=== PATIENT | female | born 1965 ===

== ENCOUNTER 2017-12-22 14:17 | Inpatient (IN) | payer BC ==
--- NOTE | 2017-12-22 15:14 | C.PDOC ---
History Of Present Illness 52yo female, with history of hypertension, diabetes, and severe disc disease, comes to ER reporting intractable back pain, ongoing x 1 month. Patient reports she now has increased right buttock and right leg numbness and has had frequent falls due to the weakness. She states the pain localizes in the lumbar area and radiates to bilateral legs, right > left. Patient has been following with Dr. Lake, neurosurgeon, and was instructed to come to ER for evaluation of worsening pain. She reports stress urine incontinence, but denies any retention or bowel incontinence. She also denies any abdominal pain or dizziness. PMD: In the [place] Time Seen by Provider: 12/22/17 14:28 Chief Complaint (Nursing): Back Pain History Per: Patient History/Exam Limitations: no limitations Onset/Duration Of Symptoms: Persistent Current Symptoms Are (Timing): Still Present Associated Symptoms: Incontinence (stress), New Weakness (right leg). denies: New Numbness Additional History Per: Patient Past Medical History Reviewed: Historical Data, Nursing Documentation, Vital Signs Vital Signs: Last Vital Signs Temp 98.2 F 12/22/17 14:20 Pulse 83 12/22/17 14:20 Resp 18 12/22/17 14:20 BP 145/89 12/22/17 14:20 Pulse Ox 99 12/22/17 14:20 - Medical History PMH: Back Problems, Hypercholesterolemia Surgical History: Appendectomy, Tonsillectomy Family History: States: Diabetes, Hypertension - Social History Hx Tobacco Use: No Hx Alcohol Use: Yes Hx Substance Use: No - Immunization History Hx Tetanus Toxoid Vaccination: No Hx Influenza Vaccination: No Hx Pneumococcal Vaccination: No Review Of Systems Except As Marked, All Systems Reviewed And Found Negative. (as per HPI) Constitutional: Negative for: Fever, Chills Gastrointestinal: Negative for: Abdominal Pain, Other (bowel incontinence) Genitourinary: Positive for: Incontinence (stress urine incontinence) Musculoskeletal: Positive for: Back Pain Neurological: Positive for: Weakness (right leg), Numbness (right buttock and right leg). Negative for: Dizziness Physical Exam - Physical Exam Appears: Non-toxic, In Acute Distress (moderate painful distress), Other (tired appearing) Skin: Normal Color Head: Atraumatic, Normacephalic Eye(s): bilateral: Normal Inspection Neck: Normal ROM, Supple Chest: Symmetrical Cardiovascular: Rhythm Regular Respiratory: Normal Breath Sounds Gastrointestinal/Abdominal: Normal Exam, Soft Back: Vertebral Tenderness (lumbar tenderness; no stepoff; no creptius), Paraspinal Tenderness (lumbar), Straight Leg Raising (+ bilaterally) Extremity: Other (bilateral knee DTR reflex test inconclusive) Neurological/Psych: Oriented x3, Normal Motor (5/5 motor strength ankle flexion, dorsiflexion and EHL), No Normal Sensation (light touch decreased on right lateral buttock), Other (no saddle anesthesia) ED Course And Treatment - Laboratory Results Result Diagrams: 12/28/17 12:57 12/28/17 12:57 O2 Sat by Pulse Oximetry: 99 (RA) Pulse Ox Interpretation: Normal Medical Decision Making Medical Decision Making: Impression: Intractable back pain Plan: -- Labs -- Urinalysis -- CXR -- EKG [address] Lake, who recommends admission. [address] Yuri Brice, hospitalist electronics teacher, who accepts patient for admission. Disposition Counseled Patient/Family Regarding: Diagnosis - Disposition Disposition: HOSPITALIZED Disposition Time: 15:00 Condition: FAIR - Clinical Impression Clinical Impression: Low back pain - Scribe Statement The provider has reviewed the documentation as recorded by the Kranthi Bermeo Provider Attestation: All medical record entries made by the Kranthi were at my direction and personally dictated by me. I have reviewed the chart and agree that the record accurately reflects my personal performance of the history, physical exam, medical decision making, and the department course for this patient. I have also personally directed, reviewed, and agree with the discharge instructions and disposition.
[2017-12-22 15:33] LABS: BASO # 0.2 K/uL (0.0-0.2); BASO % 1.2 % (0.0-2.0); EOS # 0.3 K/uL (0.0-0.7); EOS % 2.6 % (0.0-4.0); HEMOGLOBIN 13.8 g/dL (11.0-16.0); LYMPH # 3.6 K/uL (1.0-4.3); LYMPH % 27.5 % (20.0-40.0); MEAN CELL VOLUME 87.8 fL (81.0-99.0); MEAN CORPUSCULAR HEMOGLOBIN 30.6 pg (27.0-31.0); MEAN CORPUSCULAR HGB CONC 34.8 g/dL (33.0-37.0); MEAN PLATELET VOLUME 9.3 fL (7.2-11.7); MONO # 0.6 K/uL (0.0-0.8); MONO % 4.7 % (0.0-10.0); NEUT # 8.3 K/uL (1.8-7.0); RBC 4.51 Mil/uL (3.80-5.20); RED CELL DISTRIBUTION WIDTH 13.5 % (11.5-14.5)
[2017-12-22 15:42] LABS: PROTHROMBIN TIME 10.7 SECONDS (9.7-12.2)
[2017-12-22 15:57] LABS: ALB/GLOB RATIO 1.2 (1.0-2.1); ALBUMIN 4.3 g/dL (3.5-5.0); ALT/SGPT 20 U/L (9-52); AST/SGOT 19 U/L (14-36); BLOOD UREA NITROGEN 16 mg/dL (7-17); CALCIUM 10.1 mg/dl (8.6-10.4); GFR NON-AFRICAN AMERICAN > 60
[2017-12-22] MEDS ORDERED: Sodium Chloride 0.9% 1,000 ML IV SCH (16:45)
--- NOTE | 2017-12-22 16:48 | RAD ---
Date of service: 12/22/2017 PROCEDURE: CHEST RADIOGRAPH, 1 VIEW HISTORY: preop COMPARISON: None available. FINDINGS: LUNGS: Clear. Shallow lung volumes PLEURA: No pneumothorax or pleural fluid seen. CARDIOVASCULAR: Cardiomegaly. There is absence of aortic atherosclerotic calcification on x-ray. No pulmonary venous congestion OSSEOUS STRUCTURES: No significant abnormalities. VISUALIZED UPPER ABDOMEN: Normal. OTHER FINDINGS: None. IMPRESSION: Cardiomegaly. No acute pulmonary pathology noted
--- NOTE | 2017-12-22 16:53 | CP.PCM.HP ---
<ClementcurtMargairtocandido - Last Filed: 12/22/17 16:44> History of Present Illness - History of Present Illness History of Present Illness: Ms. Yeung is a 52 year old female with a PMHx of Diabetes Type II, severe lumbar disk disease, constipation, hyperlipidemia, Asthma, and obstructive sleep apnea who presents with complaints of lower back pain with radiation. Patient was told by her Neurosurgeon (Dr. Lake) to go to the E.R if her back pain ever worsened. Patient walked into the E.R with her assistance of her son. Patient admits to saddle anaesthesia and some urinary incontinence. She denies any bowel incontinence. She also admits to motor loss of the lower extremity and distal lower extremity numbness and tingling. ROS POSITIVES: Back pain (Lumbar), Saddle Anaesthesia, Lower Ext. motor loss, Low Ext. sensory loss, urinary incontinence NEGATIVES: Fever, chills, chest pain, SOB, abdominal pain, n/v/d, constipation, bowel incontinence, dizziness, dysuria, urinary frequency PMHx: Diabetes Type II, Severe disk disease, Constipation, HLD, Asthma, JZAZY, Seasonal Allergies PSHx: Lumbar Disk removal, B/L 1st Toe surgery, tonsillectomy, sinus surgery Allergies: NKDA, SocialHx: Denies tobacco use, social EtoH use, Denies illicit drug use Hos: For surgeries FamHx: Mother - Insulin dependent diabetes Meds: Per APR. PMD: Dr. Robbie Sánchez Present on Admission - Present on Admission Any Indicators Present on Admission: No Review of Systems - Review of Systems Review of Systems: As per HPI Past Patient History - Past Social History Smoking Status: Never Smoked - CARDIAC Hx Hypercholesterolemia: Yes - ENDOCRINE/METABOLIC Hx Endocrine Disorders: Yes Hx Diabetes Mellitus Type 2: Yes - MUSCULOSKELETAL/RHEUMATOLOGICAL Hx Musculoskeletal Disorders: Yes - PSYCHIATRIC Hx Substance Use: No - SURGICAL HISTORY Hx Appendectomy: Yes Hx Tonsillectomy: Yes Meds Allergies/Adverse Reactions: Allergies Allergy/AdvReac Type Severity Reaction Status Date / Time No Known Allergies Allergy Verified 12/22/17 14:24 Physical Exam - Constitutional Appears: Well, Non-toxic, No Acute Distress - Head Exam Head Exam: ATRAUMATIC, NORMAL INSPECTION - Eye Exam Eye Exam: EOMI, Normal appearance. absent: Scleral icterus - ENT Exam ENT Exam: Mucous Membranes Moist - Neck Exam Neck exam: Positive for: Normal Inspection - Respiratory Exam Respiratory Exam: Clear to Auscultation Bilateral. absent: Accessory Muscle Use - Cardiovascular Exam Cardiovascular Exam: RRR, +S1, +S2 - GI/Abdominal Exam GI & Abdominal Exam: Normal Bowel Sounds, Soft. absent: Tenderness - Extremities Exam Extremities exam: Positive for: normal capillary refill. Negative for: pedal edema - Back Exam Additional comments: Lumbar paraspinal tenderness - Neurological Exam Neurological exam: Abnormal Gait, Alert, Motor Sensory Deficit (Anterior left foot.), Oriented x3 Additional comments: 3/5 Muscle Strength in hip flexion 5/5 Muscle Strength in Right Dorsi/Plantar flexion 4/5 Muscle Strength in Left Dorsi/Plantar flexion Positive Straight leg Test B/L. - Psychiatric Exam Psychiatric exam: Normal Affect, Normal Mood - Skin Skin Exam: Dry, Intact, Normal Color, Warm Results - Vital Signs Recent Vital Signs: Last Vital Signs Temp 98.5 F 12/22/17 16:37 Pulse 73 12/22/17 16:37 Resp 16 12/22/17 16:37 BP 145/76 12/22/17 16:37 Pulse Ox 99 12/22/17 16:37 - Labs Result Diagrams: 12/22/17 15:28 12/22/17 15:28 Labs: Laboratory Results - last 24 hr 12/22/17 12/22/17 12/22/17 15:28 15:28 15:28 WBC 13.0 H RBC 4.51 Hgb 13.8 Hct 39.6 MCV 87.8 MCH 30.6 MCHC 34.8 RDW 13.5 Plt Count 268 MPV 9.3 Neut % (Auto) 64.0 Lymph % (Auto) 27.5 Alfalfa % (Auto) 4.7 Eos % (Auto) 2.6 Baso % (Auto) 1.2 Neut # (Auto) 8.3 H Lymph # (Auto) 3.6 Alfalfa # (Auto) 0.6 Eos # (Auto) 0.3 Baso # (Auto) 0.2 PT 10.7 INR 1.0 APTT 33 Sodium 139 Potassium 4.2 Chloride 100 Carbon Dioxide 27 Anion Gap 16 BUN 16 Creatinine 0.6 L Est GFR ( Amer) > 60 Est GFR (Non-Af Amer) > 60 Random Glucose 225 H Calcium 10.1 Phosphorus Magnesium Total Bilirubin 0.6 AST 19 ALT 20 Alkaline Phosphatase 119 Total Protein 7.9 Albumin 4.3 Globulin 3.6 Albumin/Globulin Ratio 1.2 12/22/17 16:02 WBC RBC Hgb Hct MCV MCH MCHC RDW Plt Count MPV Neut % (Auto) Lymph % (Auto) Alfalfa % (Auto) Eos % (Auto) Baso % (Auto) Neut # (Auto) Lymph # (Auto) Alfalfa # (Auto) Eos # (Auto) Baso # (Auto) PT INR APTT Sodium Potassium Chloride Carbon Dioxide Anion Gap BUN Creatinine Est GFR ( Amer) Est GFR (Non-Af Amer) Random Glucose Calcium Phosphorus 4.3 Magnesium 1.7 Total Bilirubin AST ALT Alkaline Phosphatase Total Protein Albumin Globulin Albumin/Globulin Ratio Assessment & Plan - Assessment and Plan (Free Text) Assessment: 52 year old female with a PMHx of Diabetes Type II, severe lumbar disk disease, constipation, hyperlipidemia, Asthma, and obstructive sleep apnea admitted for evaluation and treatment lumbar disk disease. Plan: Severe B/L Lumbar Disk Disease with radiculopathy Neurosurgery Consulted (Dr. Lake) EKG (Admission) NSR @ 75 BPM CXR (Admission): No Acute pulmonary disease (Prelim) PT/PTT - Within Normal Limits NPO After MIDNIGHT, NS @ 75 mls/hr Meds: Morphine 1 Q6H PRN for Severe Pain Toradol 15 Q4H PRN for Moderate Pain Diabetes II Meds: Glyburide 2.5 BID (Reduced from Home 5mg BID) Regular Insulin Sliding Scale Metformin 500 BID (HELD) Hyperlipidemia Meds: Crestor 5 HS (changed from home Simvastatin 20mg HS) Ezetimibe 10 PO HS Asthma Meds: Singulair 10 PO HS Proph NPO After Midnight Lovenox - Not started due to possible surgery in AM SCD's NO indication for GI prophylaxis at this time. Patient seen and discussed with Dr. Babs Colon, PGY-2 <Yuri Brice H - Last Filed: 12/23/17 07:30> Results - Vital Signs Recent Vital Signs: Last Vital Signs Temp 98 F 12/23/17 00:00 Pulse 74 12/23/17 00:00 Resp 20 12/23/17 00:00 BP 160/76 H 12/23/17 00:00 Pulse Ox 97 12/23/17 00:00 - Labs Result Diagrams: 12/23/17 06:47 12/23/17 06:47 Labs: Laboratory Results - last 24 hr 12/22/17 12/22/17 12/22/17 15:28 15:28 15:28 WBC 13.0 H RBC 4.51 Hgb 13.8 Hct 39.6 MCV 87.8 MCH 30.6 MCHC 34.8 RDW 13.5 Plt Count 268 MPV 9.3 Neut % (Auto) 64.0 Lymph % (Auto) 27.5 Alfalfa % (Auto) 4.7 Eos % (Auto) 2.6 Baso % (Auto) 1.2 Neut # (Auto) 8.3 H Lymph # (Auto) 3.6 Alfalfa # (Auto) 0.6 Eos # (Auto) 0.3 Baso # (Auto) 0.2 PT 10.7 INR 1.0 APTT 33 Sodium 139 Potassium 4.2 Chloride 100 Carbon Dioxide 27 Anion Gap 16 BUN 16 Creatinine 0.6 L Est GFR ( Amer) > 60 Est GFR (Non-Af Amer) > 60 POC Glucose (mg/dL) Random Glucose 225 H Calcium 10.1 Phosphorus Magnesium Total Bilirubin 0.6 AST 19 ALT 20 Alkaline Phosphatase 119 Total Protein 7.9 Albumin 4.3 Globulin 3.6 Albumin/Globulin Ratio 1.2 Urine Color Urine Clarity Urine pH Ur Specific [place] Urine Protein Urine Glucose (UA) Urine Ketones Urine Blood Urine Nitrate Urine Bilirubin Urine Urobilinogen Ur Leukocyte Esterase Urine WBC (Auto) Ur Squamous Epith Cells Urine Bacteria Urine HCG, Qual Blood Type Antibody Screen 12/22/17 12/22/17 12/22/17 15:55 16:02 21:03 WBC RBC Hgb Hct MCV MCH MCHC RDW Plt Count MPV Neut % (Auto) Lymph % (Auto) Alfalfa % (Auto) Eos % (Auto) Baso % (Auto) Neut # (Auto) Lymph # (Auto) Alfalfa # (Auto) Eos # (Auto) Baso # (Auto) PT INR APTT Sodium Potassium Chloride Carbon Dioxide Anion Gap BUN Creatinine Est GFR ( Amer) Est GFR (Non-Af Amer) POC Glucose (mg/dL) 342 H Random Glucose Calcium Phosphorus 4.3 Magnesium 1.7 Total Bilirubin AST ALT Alkaline Phosphatase Total Protein Albumin Globulin Albumin/Globulin Ratio Urine Color Urine Clarity Urine pH Ur Specific [place] Urine Protein Urine Glucose (UA) Urine Ketones Urine Blood Urine Nitrate Urine Bilirubin Urine Urobilinogen Ur Leukocyte Esterase Urine WBC (Auto) Ur Squamous Epith Cells Urine Bacteria Urine HCG, Qual Blood Type B POSITIVE Antibody Screen Negative 12/23/17 12/23/17 12/23/17 05:42 06:47 06:47 WBC 11.2 H RBC 4.13 Hgb 12.7 Hct 36.7 MCV 88.9 MCH 30.7 MCHC 34.5 RDW 13.2 Plt Count 237 MPV 9.2 Neut % (Auto) 60.0 Lymph % (Auto) 30.5 Alfalfa % (Auto) 5.2 Eos % (Auto) 3.4 Baso % (Auto) 0.9 Neut # (Auto) 6.7 Lymph # (Auto) 3.4 Alfalfa # (Auto) 0.6 Eos # (Auto) 0.4 Baso # (Auto) 0.1 PT 10.9 INR 1.0 APTT 29 Sodium Potassium Chloride Carbon Dioxide Anion Gap BUN Creatinine Est GFR ( Amer) Est GFR (Non-Af Amer) POC Glucose (mg/dL) 237 H Random Glucose Calcium Phosphorus Magnesium Total Bilirubin AST ALT Alkaline Phosphatase Total Protein Albumin Globulin Albumin/Globulin Ratio Urine Color Urine Clarity Urine pH Ur Specific [place] Urine Protein Urine Glucose (UA) Urine Ketones Urine Blood Urine Nitrate Urine Bilirubin Urine Urobilinogen Ur Leukocyte Esterase Urine WBC (Auto) Ur Squamous Epith Cells Urine Bacteria Urine HCG, Qual Blood Type Antibody Screen 12/23/17 12/23/17 12/23/17 06:47 06:50 06:50 WBC RBC Hgb Hct MCV MCH MCHC RDW Plt Count MPV Neut % (Auto) Lymph % (Auto) Alfalfa % (Auto) Eos % (Auto) Baso % (Auto) Neut # (Auto) Lymph # (Auto) Alfalfa # (Auto) Eos # (Auto) Baso # (Auto) PT INR APTT Sodium 137 Potassium 4.0 Chloride 104 Carbon Dioxide 23 Anion Gap 14 BUN 12 Creatinine 0.5 L Est GFR ( Amer) > 60 Est GFR (Non-Af Amer) > 60 POC Glucose (mg/dL) Random Glucose 241 H Calcium 8.9 Phosphorus Magnesium Total Bilirubin 0.5 AST 14 D ALT 23 Alkaline Phosphatase 138 H Total Protein 6.7 Albumin 3.8 Globulin 2.9 Albumin/Globulin Ratio 1.3 Urine Color Yellow Urine Clarity Clear Urine pH 5.0 Ur Specific [place] 1.012 Urine Protein Negative Urine Glucose (UA) 3+ H Urine Ketones Negative Urine Blood Negative Urine Nitrate Negative Urine Bilirubin Negative Urine Urobilinogen Normal Ur Leukocyte Esterase Neg Urine WBC (Auto) < 1 Ur Squamous Epith Cells 2 Urine Bacteria Rare Urine HCG, Qual Negative Blood Type Antibody Screen Attending/Attestation - Attestation I have personally seen and examined this patient.: Yes I have fully participated in the care of the patient.: Yes I have reviewed all pertinent clinical information: Yes Notes (Text): 12/23/17 07:25 Medical attending: Patient was seen and examined by me. Agree with the above note by the resident The patient was not in any acute distress when we saw her however she explained to us that she has been having ongoing severe low back pain for some time now and has failed conservative outpatient measures. The patient previously had seen neurosurgery and per my discussion with patient and family at bedside there had been past discussion about surgery already. Reguardless if the patient does have surgical intervention or not, we explained to the patient and family that she may benefit from going to rehab following this. Yuri Brice
[2017-12-22] MEDS: Sodium Chloride 0.9% 1,000 ML IV SCH (18:00)
[2017-12-22] MEDS: Bacitracin Ointment 30 GM TUBE TOP SCH (18:00)
[2017-12-22] MEDS: (Novolin R) Insulin Human Regular 100 units/ml vial SC SCH (22:08)
[2017-12-23 06:52] LABS: BASO # 0.1 K/uL (0.0-0.2); BASO % 0.9 % (0.0-2.0); EOS # 0.4 K/uL (0.0-0.7); EOS % 3.4 % (0.0-4.0); HEMOGLOBIN 12.7 g/dL (11.0-16.0); LYMPH # 3.4 K/uL (1.0-4.3); LYMPH % 30.5 % (20.0-40.0); MEAN CELL VOLUME 88.9 fL (81.0-99.0); MEAN CORPUSCULAR HEMOGLOBIN 30.7 pg (27.0-31.0); MEAN CORPUSCULAR HGB CONC 34.5 g/dL (33.0-37.0); MEAN PLATELET VOLUME 9.2 fL (7.2-11.7); MONO # 0.6 K/uL (0.0-0.8); MONO % 5.2 % (0.0-10.0); NEUT # 6.7 K/uL (1.8-7.0); RBC 4.13 Mil/uL (3.80-5.20); RED CELL DISTRIBUTION WIDTH 13.2 % (11.5-14.5); WHITE BLOOD COUNT 11.2 K/uL (4.8-10.8)
[2017-12-23 06:59] LABS: SQUAMOUS EPITHIAL 2 /hpf (0-5); URINE BACTERIA RARE (<OCC); URINE BILIRUBIN NEGATIVE (NEGATIVE); URINE BLOOD NEGATIVE (NEGATIVE); URINE CLARITY Clear (Clear); URINE COLOR Yellow (YELLOW); URINE GLUCOSE (UA) 3+ mg/dL (Normal); URINE LEUKOCYTE ESTERASE NEG Leu/uL (Negative); URINE PROTEIN NEGATIVE (NEGATIVE); URINE UROBILINOGEN NORMAL mg/dL (0.2-1.0)
[2017-12-23 07:05] LABS: PROTHROMBIN TIME 10.9 SECONDS (9.7-12.2)
[2017-12-23 07:22] LABS: ALB/GLOB RATIO 1.3 (1.0-2.1); ALBUMIN 3.8 g/dL (3.5-5.0); ALT/SGPT 23 U/L (9-52); AST/SGOT 14 U/L (14-36); BLOOD UREA NITROGEN 12 mg/dL (7-17); CALCIUM 8.9 mg/dl (8.6-10.4); GFR NON-AFRICAN AMERICAN > 60
[2017-12-23] MEDS ORDERED: Bupivacaine Liposomal Inj 20 ml INFIL ONE (07:24)
[2017-12-23] MEDS ORDERED: Bacitracin 50,000 UNIT in Sodium Chloride 0.9% Irrig 1,000 ML IR SCH (07:25)
[2017-12-23] MEDS ORDERED: Sodium Chloride 0.9% 20 ML IV ONE ×2 (07:33→09:28)
[2017-12-23] MEDS ORDERED: Absorbable Gelatin Sponge Size 100 ONE (07:33)
[2017-12-23] MEDS ORDERED: Bacitracin Ointment 30 GM TUBE ONE (07:34)
[2017-12-23] MEDS ORDERED: Lidocaine/Epinephrine 1% 1:100000 10 ML IJ ONE (07:34)
[2017-12-23] MEDS: (Novolin R) Insulin Human Regular 100 units/ml vial SC SCH ×4 (07:35→22:17)
[2017-12-23] MEDS ORDERED: Propofol 10 mg/ml Inj (20 ML) ONE (08:05)
[2017-12-23] MEDS ORDERED: Midazolam 2 MG/2 ML VIAL ONE (08:05)
[2017-12-23] MEDS ORDERED: Propofol 10 mg/ml 1,000 MG/100 ML VIAL ONE ×3 (08:07→11:23)
[2017-12-23] MEDS ORDERED: ceFAZolin IV 1 gm in Dextrose 2 GM/100 ML BAG IVPB ONE (08:11)
[2017-12-23] MEDS ORDERED: Thrombin Topical 20,000 Intl Units Spray Kit TOP ONE (08:11)
[2017-12-23] MEDS: Bacitracin Ointment 30 GM TUBE TOP SCH ×2 (08:59→18:15)
--- NOTE | 2017-12-23 09:09 | CP.PCM.PN ---
<Yuri Melchor - Last Filed: 12/23/17 17:38> Subjective - Date & Time of Evaluation Date of Evaluation: 12/23/17 Time of Evaluation: 09:08 - Subjective Subjective: Progress note for Hospitalist service Patient seen and examined at bedside post-operatively. She is comfortable, complains of minimal back pain. Family at bedside requests that patient be fed soon and has medications on for pain control. Patient is awake but slightly somnolent. She denies abdominal pain, chest pain, headache, dizziness, urinary problems, leg pain. She has not had a bowel movement since her surgery today. Objective - Vital Signs/Intake and Output Vital Signs (last 24 hours): Temp Pulse Resp BP Pulse Ox 98.1 F 66 20 128/62 97 12/23/17 07:51 12/23/17 07:51 12/23/17 07:51 12/23/17 07:51 12/23/17 07:51 Intake and Output: 12/23/17 12/23/17 06:59 18:59 Intake Total 375 600 Output Total 0 Balance 375 600 - Medications Medications: Current Medications Bacitracin (Bacitracin) 0 gm TOP BID [facility] Last Admin: 12/23/17 08:59 Dose: Not Given Ezetimibe (Zetia) 10 mg PO HS [facility] Last Admin: 12/22/17 22:15 Dose: Not Given Glyburide (Micronase) 2.5 mg PO BID [facility] Last Admin: 12/23/17 09:00 Dose: Not Given Sodium Chloride (Sodium Chloride 0.9%) 1,000 mls @ 75 mls/hr IV .[id number] [facility] Last Admin: 12/22/17 18:00 Dose: 75 mls/hr Insulin Human Regular (Novolin R) 0 unit SC ACHS [facility]; Protocol Last Admin: 12/23/17 07:35 Dose: Not Given Ketorolac Tromethamine (Toradol) 15 mg IVP Q6 PRN PRN Reason: Pain, moderate (4-7) Loratadine (Claritin) 10 mg PO DAILY [facility] Last Admin: 12/23/17 08:59 Dose: Not Given Montelukast Sodium (Singulair) 10 mg PO HS [facility] Last Admin: 12/22/17 22:08 Dose: 10 mg Morphine Sulfate (Morphine) 1 mg IVP Q4 PRN PRN Reason: Pain, severe (8-10) Last Admin: 12/22/17 23:58 Dose: 1 mg Rosuvastatin Calcium (Crestor) 5 mg PO HS [facility] Last Admin: 12/22/17 22:07 Dose: 5 mg - Labs Labs: 12/23/17 06:47 12/23/17 06:47 PT 10.9 SECONDS (9.7-12.2) 12/23/17 06:47 INR 1.0 12/23/17 06:47 APTT 29 SECONDS (21-34) 12/23/17 06:47 - Constitutional Appears: Well, No Acute Distress - Head Exam Head Exam: ATRAUMATIC, NORMOCEPHALIC - Eye Exam Eye Exam: EOMI, PERRL - ENT Exam ENT Exam: Mucous Membranes Moist - Neck Exam Neck Exam: Full ROM. absent: Tenderness - Respiratory Exam Respiratory Exam: Clear to Ausculation Bilateral. absent: Rales, Rhonchi, Wheez es, Stridor - Cardiovascular Exam Cardiovascular Exam: REGULAR RHYTHM, +S1, +S2. absent: Gallop, Rubs, Murmur - GI/Abdominal Exam GI & Abdominal Exam: Soft, Normal Bowel Sounds. absent: Distended, Firm, Guarding, Rigid, Tenderness, Diminished Bowel Sounds - Extremities Exam Extremities Exam: Normal Capillary Refill. absent: Calf Tenderness, Pedal Edema, Tenderness Additional comments: SCDs in place Left big toe: ingrown nail, no evidence of erythema, discharge, lymphangitis. Scar noted at the 1st metatarsal joint Right big toe: scar noted at 1st metatarsal joint - Neurological Exam Neurological Exam: Alert, Awake (slightly somnolent) - Skin Skin Exam: Dry, Intact, Warm Assessment and Plan - Assessment and Plan (Free Text) Plan: Assessment/plan Assessment 52 year old female with history of Type 2 DM, severe lumbar disk disease, hyperlipidemia, asthma, obstructive sleep apnea, constipated who was admitted for lumbar disk disease and status post posterior lumbar fusion, decompression and fixation of L4-5, L5, S1 with Dr. Lake. Plan Severe Bilateral Lumbar disk disease Status post posterior lumbar fusion, decompression and fixation of L4-5, L5, S1 Post op day [address] Lake consulted, help appreciated EKG NSR at 75 CXR: negative Tylenol 650mg PRN On Dilaudid [employer] pump Toradol 15mg Q6 PRN Morphine 1mg Q4 PRN LR @ 100cc/hr IV Type 2 Diabetes Insulin sliding scale Home Metformin held during hospitalization Glyburide 2.5mg BID Hypoglycemic protocol Hyperlipidemia Crestor 5mg HS Zetia 10mg PO HS History of Asthma Albuterol Q4 PRN Singulair 10mg PO HS Claritin 10mg PO Daily Left big toe ingrown tail Apply bacitracin to area Prophylaxis DVT: SCDs, no anticoagulation for today, may start Heparin 12/24/17. GI: not indicated at this time. On consistent carb diet PT/OT Incentive spirometer Case management consulted for discharge planning Case discussed with Dr. Yuri Melchor, PGY1 <Yuri Brice H - Last Filed: 12/23/17 18:14> Objective - Vital Signs/Intake and Output Vital Signs (last 24 hours): Temp Pulse Resp BP Pulse Ox 98.1 F 88 20 115/73 98 12/23/17 15:00 12/23/17 15:00 12/23/17 15:00 12/23/17 15:00 12/23/17 15:00 Intake and Output: 12/23/17 12/23/17 06:59 18:59 Intake Total 375 2825 Output Total 750 Balance 375 2075 - Medications Medications: Current Medications Acetaminophen (Tylenol 325mg Tab) 650 mg PO Q6 PRN PRN Reason: Fever >100.4 F Albuterol/Ipratropium (Duoneb 3 Mg/0.5 Mg (3 Ml) Ud) 3 ml INH RQ4 PRN PRN Reason: Wheezing Bacitracin (Bacitracin) 0 gm TOP BID [facility] Last Admin: 12/23/17 08:59 Dose: Not Given Dextrose (Dextrose 50% Inj) 0 ml IV STAT PRN; Protocol PRN Reason: Hypoglycemia Protocol Dextrose (Glutose 15) 0 gm PO ONCE PRN; Protocol PRN Reason: Hypoglycemia Protocol Ezetimibe (Zetia) 10 mg PO HS [facility] Last Admin: 12/22/17 22:15 Dose: Not Given Glucagon (Glucagen Diagnostic Kit) 0 mg IM STAT PRN; Protocol PRN Reason: Hypoglycemia Protocol Glyburide (Micronase) 2.5 mg PO BID [facility] Last Admin: 12/23/17 17:52 Dose: 2.5 mg Hydromorphone/Sodium Chloride (Dilaudid [employer]) 4 mg IV Q4H PRN; Protocol PRN Reason: Pain, moderate (4-7) Last Admin: 12/23/17 15:40 Dose: 4 mg Sodium Chloride (Sodium Chloride 0.9%) 1,000 mls @ 75 mls/hr IV .[id number] [facility] Last Admin: 12/22/17 18:00 Dose: 75 mls/hr Lactated Ringer's (Lactated Ringer's) 1,000 mls @ 100 mls/hr IV .Q10H [facility] Dextrose (Dextrose 5% In Water 1000 Ml) 1,000 mls @ 0 mls/hr IV .Q0M PRN; Protocol PRN Reason: Hypoglycemia Protocol Influenza Virus Vaccine (Fluzone Quad 2403-0369) 60 mcg IM .ONCE ONE Stop: 12/25/17 10:01 Insulin Human Regular (Novolin R) 0 unit SC ACHS [facility]; Protocol Last Admin: 12/23/17 17:52 Dose: 4 units Ketorolac Tromethamine (Toradol) 15 mg IVP Q6 PRN PRN Reason: Pain, moderate (4-7) Loratadine (Claritin) 10 mg PO DAILY [facility] Last Admin: 12/23/17 08:59 Dose: Not Given Montelukast Sodium (Singulair) 10 mg PO [facility] Last Admin: 12/22/17 22:08 Dose: 10 mg Morphine Sulfate (Morphine) 1 mg IVP Q4 PRN PRN Reason: Pain, severe (8-10) Last Admin: 12/22/17 23:58 Dose: 1 mg Rosuvastatin Calcium (Crestor) 5 mg PO [facility] Last Admin: 12/22/17 22:07 Dose: 5 mg - Labs Labs: 12/23/17 06:47 12/23/17 06:47 PT 10.9 SECONDS (9.7-12.2) 12/23/17 06:47 INR 1.0 12/23/17 06:47 APTT 29 SECONDS (21-34) 12/23/17 06:47 Attending/Attestation - Attestation I have personally seen and examined this patient.: Yes I have fully participated in the care of the patient.: Yes I have reviewed all pertinent clinical information, including history, physical exam and plan: Yes Notes (Text): 12/23/17 18:12 Medical attending: Patient was seen and examined by me with the medical residents this afternoon. I did not see her before the surgery but afterwards. She was not in any acute distress, family members present. Patient looked very cheerful when I saw her. Explained to the patient as well as patient's family that at some point will need to have further physical therapy and rehab. Today patient was more understand with the need for rehab after procedure Yuri Brice
[2017-12-23] MEDS ORDERED: Bupivacaine HCl 0.5% PF (30 ml) Inj ONE (09:28)
[2017-12-23] MEDS ORDERED: Bupivacaine HCl 0.5% PF (30 ml) Inj IJ ONE (10:51)
[2017-12-23] MEDS: Vancomycin 1 g Inj ONE ×2 (12:04→12:10)
--- NOTE | 2017-12-23 12:34 | RAD ---
Date of service: 12/23/2017 PROCEDURE: Intraoperative Fluoroscopy. HISTORY: LUMBAR DISC DERANGEMENT FINDINGS: Fluoroscopic assistance was provided. Fluoroscopy time = 64.7 sec. Radiation dose = 1.22 mGy-cm Please refer to the operative report from [facility] Mendiola.
[2017-12-23] MEDS ORDERED: HYDROmorphone 0.5 mg/0.5 ml ISec IVP PRN (12:38)
[2017-12-23] MEDS ORDERED: Lactated Ringer's 1,000 ML IV SCH (12:45)
[2017-12-23] MEDS ORDERED: (Novolin R) Insulin Human Regular 100 units/ml vial IVP ONE (13:07)
[2017-12-23] MEDS ORDERED: Sodium Chloride 0.9% 1,000 ML IV ONE (14:30)
[2017-12-23] MEDS ORDERED: Albuterol-Ipratrop 3 mg / 0.5 (3 ml) UD INH PRN (16:57)
[2017-12-23] MEDS ORDERED: Dextrose 50% SYRINGE Inj (50 ml) IV PRN (17:34)
[2017-12-23] MEDS ORDERED: Glucagon Recombinant 1 mg Inj IM PRN (17:34)
[2017-12-23] MEDS: Sodium Chloride 0.9% 1,000 ML IV SCH (19:41)
--- NOTE | 2017-12-24 06:24 | OP ---
PROCEDURE DATE: 12/23/2017 PREOPERATIVE DIAGNOSES: Lumbar disc derangement with severe low back pain and bilateral radiculopathy L4-5, L5-S1. POSTOPERATIVE DIAGNOSES: Lumbar disc derangement with severe low back pain and bilateral radiculopathy, L4-5, L5-S1. PROCEDURE: Reexploration, decompression, diskectomy L4-S1; interbody fusion L4-5; segmental pedicle screw fixation of posterolateral fusion with iliac autograft L4-S1. SURGEON: Pradeep Lake MD NON DESTRUCTIVE EVALUATION TECHNICIAN: Luis Mitchell MD ANESTHESIA: General endotracheal. ESTIMATED BLOOD LOSS: 300 mL, 125 mL returned via Cell [employer]. COMPLICATIONS: None. JUSTIFICATION: The patient has had many years of severe low back pain as well as bilateral lumbar radiculopathy. She is status post a left L5-S1 microdiskectomy. She failed conservative treatment with MRI documented herniated disc and foraminal stenosis at L4-5 with a severe disc space collapse and bilateral foraminal stenosis at L5-S1. The patient was offered operative intervention by decompression, diskectomy, and fusion, the nature of the procedure, rationale behind it, potential risks, complications, alternatives, realistic chance of success, mcfp outlook were discussed with her at length. All questions were answered. She fully understood all the above and elected to proceed as offered. DESCRIPTION OF PROCEDURE: The patient was taken to the operating room. She was hooked up to neurophysiological monitoring. She was intubated, anesthetized, and carefully placed on prone position on a Cong frame. Care was taken to protect her face, eyes, endotracheal tube, and all bony prominences. The entire low back region was then scrubbed with acetone, and scrubbed, painted, and draped in usual sterile manner. Incision was localized with lateral fluoroscopy, essentially traced including old incision and extended approximately 3 cm cephalad, this was infiltrated with 1% lidocaine with epinephrine. After prepping and draping, the incision was made with a temporary knife carried down to the level of fascia. The Bovie cautery was used to incise through the fascia, strip the paraspinal muscles off the spinous processes, and lamina of L4-S1, particular care was taken at the left L5-S1 level because of the previous laminotomy. Deep self-retaining retractors were placed. Bleeding controlled throughout with cautery. The exposure was then widened out laterally bilaterally to expose the entire sacral ala. The transverse processes of L5 and L4 exposed the pars and the entire facets including the previously operated area. After the exposure was complete, we then performed bone harvestation. A 5-gauge trocar was inserted directly into the left superior posterior iliac crest. Approximately, 120 mL of bone marrow was aspirated. This was then spun down to obtain bone marrow mesenchymal cells, later used in the fusion. The decompression was begun with a Leksell rongeur, removing the spinous processes of S1, L5, and the inferior L4. The L4 and L5 lamina were thinned down, this bone was later used in the fusion. We then began the laminectomy at the right L5-S1 level. We aborted the previous scar on the left side, and we removed the entire L5 lamina and the inferior two thirds of L4 lamina. We then exposed widely at the L4-5 level performing generous medial facetectomies internally identifying the medial L4 and L5 pedicular wall. We performed generous foraminotomy of the exiting L4 nerve roots bilaterally. We then unroofed the L5 nerve roots and traced them out their foramen. At the 4-5 disc space level, we widened out laterally enough to be able to insert the appropriate fusion cage, some of the epidural veins were coagulated. We began then heading down towards the L5-S1, first on the divergent right side. 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 There was a low takeoff of L5 with a high take off S1, they seemed to conjoined, this was exacerbated by disc space collapse at this level. We felt that there was really not anywhere near enough room to safely perform an interbody fusion on this side because of these factors. We thus ensured that these two nerve roots, i.e., right thigh and right arm were completely decompressed heading out their foramina. We then came across to the previously scarred area with some careful microdissection, removed some of the scar on the left sided thecal sac. We identified both the left L5 and S1 nerve roots and completely unroofed and decompressed then, heading out the foramen. There was a fair amount of scar in this area as well. At this point, we made an incision. Because of the scar on the left, the conjoined picture on the right as well as the severe collapse of the disc space that we would not attempt an interbody fusion at this level. We felt the L4 nerve roots as documented above were completely decompressed. There did not seem on the MRI to be any EMG compression of the S1 nerve roots, and we felt that the risk outweigh the reward, and we would just go ahead with the fibular fixation, posterolateral fusion at this level. We then began the diskectomy at the L4-5 level. The left L5 nerve root was gently retracted medially. The disc was then incised and grossly emptied the disc material that was used to carry Rongeurs. We used 8 through 11 mm skylar to further remove any soft tissue disc material annulus and begin the decortication. We tested a 12 mm shaver but clearly it is part of the decided to proceed with a 11 x 9 mm fusion cage. Large curettes were used to complete the decortication at this level. The identical procedure was then performed on the right side. Again, after the decortication, we packed the disc space with bone grafting material which included chopped up products of decompression and additional marrow impregnated allograft as well as some demineralized bone matrix fusion cages impregnated with bone marrow mesenchymal cells and final AP tap construct that was a 9 x 11 mm carbon-fiber fusion cage, filled with the above reference products and was tapped into the interspace until it was well seated. Back on the original left side, we again packed the disc space with bone graft material and tapped the identical graft. Visual inspection and lateral fluoroscopy confirmed excellent position of both these implants. At this point, I used a high-speed drill to decorticate the lateral gutters which included the transverse processes, sacral ala, lateral pars, and the entire facet. We turned our attention to placing the pedicular screws. The technique was used to visually and fluoroscopically identifying the pedicular entrance, drilling the cortical bone, passing a gearshift down the barrel of the pedicle into the vertebral body and then placing the appropriate-sized screw. Additionally, electrical current was used to stimulate the gearshift and screws while monitoring EMG activity. Additionally, a ball-tip probe was used to sound each passage which documented bone all around. Using this technique, we placed 6 diameter screws, 40 to 45 mm length bilaterally at L4 and L5; and 7 diameter screws of 35 mm length at S1. The final placement of every screw did not elicit any EMG activity below the level of 20 milliamps as well as final lateral and AP fluoroscopy confirmed excellent position of all six of these screws. At this point, we placed the appropriate-sized titanium locking jarocho into the three screw head receptacles on each side. The rods were bent to conform with the lordosis. Locking nuts were then placed and torque-wrenched tight. At this point, we placed all remaining bone graft material into the lateral gutters, lateral to the jarocho to achieve the posterolateral fusion of all bone graft material, liberally packed into the fusion bed. We then ensured that there was no remaining foreign matter, bone graft, etc, in and around thecal sac. This was gently irrigated with antibiotic solution. A layer of powdered Gelfoam followed by a layer of solid Gelfoam was placed in the epidural space, and lastly, we placed the appropriate-sized cross connector form one jarocho to the other, and torque-wrenched block in three set points tight as well. Final AP and lateral fluoroscopy confirmed proper position of the entire construct. The retractors were withdrawn. The muscle reapproximated using interrupted 0 Vicryl. The fascia closed using a tight interrupted 0 Vicryl stitch. The wound was copiously irrigated with antibiotic solution, and a layer of vancomycin powder placed at the fascial plane. The subcu was closed in two separate layers of 2-0 Vicryl. The skin was closed with running 3-0 Monocryl stitch, benzoin, and Steri-Strips. Dressing was applied. The patient was turned back onto a supine position on a stretcher. She was easily extubated; noted to be moving all groups with good strength on her way to the recovery room. All counts were correct. There were no complications. Pradeep Lake MD
--- NOTE | 2017-12-24 06:25 | CON ---
DATE: 12/22/2017 HISTORY OF PRESENT ILLNESS: Ms. Yeung is a 52-year-old lady, well known to me, who has been having low back pain with radicular pain for many years. History dates back actually to 1998 when she underwent a left S1 microdiskectomy procedure. For the past five years, she has been having increasing severe pain across the low lumbar area. The pain radiates in both lower extremities. She has tingling and numbness in the same distribution. She does have a left foot injury which complicates the situation. 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 She has difficulty with prolonged driving, sitting and standing. Her back pain is essentially at a level of 9 on a 0 to 10 scale. She has had a fair amount of on-and-off physiotherapy and multiple medications. PAST MEDICAL HISTORY: Significant for diabetes and hypertension. She also has asthma. SOCIAL HISTORY: She does not smoke. PHYSICAL EXAMINATION: NEUROLOGIC: She does have good strength throughout. Sensory exam is normal with some diminution predominantly in the left posterolateral thigh and calf. Reflexes are 1+ in the knees, absent in the ankles. Straight leg raising is quite positive on the left, plus/minus on the right. She has a well-healed microdiskectomy incision. Range of motion is still restricted. LABORATORY DATA: MRI shows a herniated disk at L4-L5. There is foraminal stenosis at L5-S1. There is severe disk space collapse. There is some scar tissue involving the left S1 nerve root, not much in the way of generalized displacement there. IMPRESSION AND PLAN: The patient has suffered from many, many years with this pain syndrome. She seems like she is certainly at the end of her rope being unable to tolerate the pain any longer, presents herself to the ER. My recommendation would be re-exploration, decompression of L4 through S1 with stabilization and fusion. I went over this suggestion with the patient. She is in full agreement with the plan. She understands the potential risks and complications, realistic chance of success and recovery time. All her questions were answered. She is agreeable. We will proceed accordingly. Pradeep Lake MD [facility] # [id number]
--- NOTE | 2017-12-24 06:51 | CP.PCM.PN ---
<Yuri Melchor - Last Filed: 12/24/17 13:28> Subjective - Date & Time of Evaluation Date of Evaluation: 12/24/17 Time of Evaluation: 06:50 - Subjective Subjective: Progress note for Hospitalist service (Dr. Brice) Patient seen and examined at bedside. She states she was able to sleep on and off. Complains of pain in her back after her surgery, POD1. She states she is eating small amounts since she experienced a little bit of nausea. She denies fevers, chills, headaches, dizziness, chest pain, shortness of breath, palpitations, abdominal pain, vomiting, diarrhea, leg pain. She states she has not had a bowel movement since her surgery yesterday. She states she has mild tingling in the back of her legs, however states her sensation intact. Objective - Vital Signs/Intake and Output Vital Signs (last 24 hours): Temp Pulse Resp BP Pulse Ox 98.9 F 98 H 20 135/77 95 12/24/17 04:29 12/24/17 04:29 12/24/17 04:29 12/24/17 04:29 12/24/17 04:29 Intake and Output: 12/23/17 12/24/17 18:59 06:59 Intake Total 2825 600 Output Total 750 1000 Balance 2075 -400 - Medications Medications: Current Medications Acetaminophen (Tylenol 325mg Tab) 650 mg PO Q6 PRN PRN Reason: Fever >100.4 F Albuterol/Ipratropium (Duoneb 3 Mg/0.5 Mg (3 Ml) Ud) 3 ml INH RQ4 PRN PRN Reason: Wheezing Bacitracin (Bacitracin) 0 gm TOP BID [facility] Last Admin: 12/23/17 18:15 Dose: 1 applic Dextrose (Dextrose 50% Inj) 0 ml IV STAT PRN; Protocol PRN Reason: Hypoglycemia Protocol Dextrose (Glutose 15) 0 gm PO ONCE PRN; Protocol PRN Reason: Hypoglycemia Protocol Ezetimibe (Zetia) 10 mg PO HS [facility] Last Admin: 12/23/17 22:18 Dose: 10 mg Glucagon (Glucagen Diagnostic Kit) 0 mg IM STAT PRN; Protocol PRN Reason: Hypoglycemia Protocol Glyburide (Micronase) 2.5 mg PO BID [facility] Last Admin: 12/23/17 17:52 Dose: 2.5 mg Hydromorphone/Sodium Chloride (Dilaudid Tube Knitter) 4 mg IV Q4H PRN; Protocol PRN Reason: Pain, moderate (4-7) Last Admin: 12/24/17 00:23 Dose: 4 mg Sodium Chloride (Sodium Chloride 0.9%) 1,000 mls @ 75 mls/hr IV .[id number] [facility] Last Admin: 12/23/17 19:41 Dose: Not Given Lactated Ringer's (Lactated Ringer's) 1,000 mls @ 100 mls/hr IV .Q10H [place] Dextrose (Dextrose 5% In Water 1000 Ml) 1,000 mls @ 0 mls/hr IV .Q0M PRN; Protocol PRN Reason: Hypoglycemia Protocol Influenza Virus Vaccine (Fluzone Quad [id number]) 60 mcg IM .ONCE ONE Stop: 12/25/17 10:01 Insulin Human Regular (Novolin R) 0 unit SC [facility]; Protocol Last Admin: 12/23/17 22:17 Dose: Not Given Ketorolac Tromethamine (Toradol) 15 mg IVP Q6 PRN PRN Reason: Pain, moderate (4-7) Loratadine (Claritin) 10 mg PO DAILY [facility] Last Admin: 12/23/17 08:59 Dose: Not Given Montelukast Sodium (Singulair) 10 mg PO [facility] Last Admin: 12/23/17 22:18 Dose: 10 mg Morphine Sulfate (Morphine) 1 mg IVP Q4 PRN PRN Reason: Pain, severe (8-10) Last Admin: 12/22/17 23:58 Dose: 1 mg Rosuvastatin Calcium (Crestor) 5 mg PO [facility] Last Admin: 12/23/17 22:18 Dose: 5 mg - Labs Labs: 12/23/17 06:47 12/23/17 06:47 PT 10.9 SECONDS (9.7-12.2) 12/23/17 06:47 INR 1.0 12/23/17 06:47 APTT 29 SECONDS (21-34) 12/23/17 06:47 - Constitutional Appears: Well, No Acute Distress - Head Exam Head Exam: ATRAUMATIC, NORMOCEPHALIC - Eye Exam Eye Exam: EOMI, PERRL - ENT Exam ENT Exam: Mucous Membranes Moist - Respiratory Exam Respiratory Exam: Clear to Ausculation Bilateral. absent: Rales, Rhonchi, Wheezes, Respiratory Distress, Stridor - Cardiovascular Exam Cardiovascular Exam: REGULAR RHYTHM, +S1, +S2. absent: Gallop, Rubs, Murmur - GI/Abdominal Exam GI & Abdominal Exam: Soft, Hypoactive Bowel Sounds. absent: Firm, Guarding, Rigid, Tenderness - Extremities Exam Extremities Exam: Normal Capillary Refill. absent: Calf Tenderness, Pedal Edema, Tenderness Additional comments: Left big toe covered in bandaged, nontender no purulent discharge, s/p recent toe surgery 3 weeks ago with [employer]. - Back Exam Additional comments: Laying on back in bed with head at incline. - Neurological Exam Neurological Exam: Alert, Awake, CN II-XII Intact, Oriented x3 Additional comments: Sensation of lower extremities intact. Able to move toes without difficulty. [place] in place draining urine. - Psychiatric Exam Psychiatric exam: Normal Affect, Normal Mood - Skin Skin Exam: Dry, Intact, Warm Assessment and Plan - Assessment and Plan (Free Text) Plan: Assessment 52 year old female with history of Type 2 DM, severe lumbar disk disease, hyperlipidemia, asthma, obstructive sleep apnea, constipated who was admitted for lumbar disk disease and status post posterior lumbar fusion, decompression and fixation of L4-5, L5, S1 with Dr. Lake. Plan Severe Bilateral Lumbar disk disease Status post posterior lumbar fusion, decompression and fixation of L4-5, L5, S1 Post op day [address] Lake consulted, help appreciated EKG NSR at 75 CXR: negative Tylenol 650mg PRN On Dilaudid CARE ASST pump Toradol 15mg Q6 PRN Morphine 1mg Q4 PRN NS@75cc/hr IV Type 2 Diabetes High Insulin sliding scale Home Metformin held during hospitalization Glyburide 2.5mg BID Hypoglycemic protocol Blood glucose levels 204 today Hyperlipidemia Crestor 5mg HS Zetia 10mg PO HS History of Asthma Albuterol Q4 PRN Singulair 10mg PO HS Claritin 10mg PO Daily Left big toe ingrown tail Apply bacitracin to area Prophylaxis DVT: SCDs, Lovenox 40mg SC GI: not indicated at this time. On consistent carb diet, eating jello and liquids today without vomiting. PT/OT, patient unable to walk today Incentive spirometer at bedside, patient encourage to use every hour Case management consulted for discharge planning Case discussed with Dr. Babs Melchor, PGY1 <Yuri Brice H - Last Filed: 12/24/17 13:59> Objective - Vital Signs/Intake and Output Vital Signs (last 24 hours): Temp Pulse Resp BP Pulse Ox 100.3 F H 87 18 132/81 97 12/24/17 08:37 12/24/17 08:37 12/24/17 08:37 12/24/17 08:37 12/24/17 08:37 Intake and Output: 12/24/17 12/24/17 06:59 18:59 Intake Total 600 Output Total 1000 Balance -400 - Medications Medications: Current Medications Acetaminophen (Tylenol 325mg Tab) 650 mg PO Q6 PRN PRN Reason: Fever >100.4 F Albuterol/Ipratropium (Duoneb 3 Mg/0.5 Mg (3 Ml) Ud) 3 ml INH RQ4 PRN PRN Reason: Wheezing Bacitracin (Bacitracin) 0 gm TOP BID [facility] Last Admin: 12/24/17 10:14 Dose: 1 applic Dextrose (Dextrose 50% Inj) 0 ml IV STAT PRN; Protocol PRN Reason: Hypoglycemia Protocol Dextrose (Glutose 15) 0 gm PO ONCE PRN; Protocol PRN Reason: Hypoglycemia Protocol Docusate Sodium (Colace) 100 mg PO TID [facility] Last Admin: 12/24/17 13:05 Dose: 100 mg Ezetimibe (Zetia) 10 mg PO HS [facility] Last Admin: 12/23/17 22:18 Dose: 10 mg Enoxaparin Sodium (Lovenox) 40 mg SC DAILY [facility] Last Admin: 12/24/17 12:56 Dose: 40 mg Ferrous Sulfate (Feosol) 325 mg PO DAILY [facility] Last Admin: 12/24/17 12:56 Dose: 325 mg Glucagon (Glucagen Diagnostic Kit) 0 mg IM STAT PRN; Protocol PRN Reason: Hypoglycemia Protocol Glyburide (Micronase) 2.5 mg PO BID [facility] Last Admin: 12/24/17 10:14 Dose: 2.5 mg Hydromorphone/Sodium Chloride (Dilaudid Tube Knitter) 4 mg IV Q4H PRN; Protocol PRN Reason: Pain, moderate (4-7) Last Admin: 12/24/17 13:34 Dose: 4 mg Sodium Chloride (Sodium Chloride 0.9%) 1,000 mls @ 75 mls/hr IV .[id number] [facility] Last Admin: 12/24/17 12:22 Dose: Not Given Lactated Ringer's (Lactated Ringer's) 1,000 mls @ 100 mls/hr IV .Q10H [facility] Last Admin: 12/24/17 10:15 Dose: Not Given Dextrose (Dextrose 5% In Water 1000 Ml) 1,000 mls @ 0 mls/hr IV .Q0M PRN; Protocol PRN Reason: Hypoglycemia Protocol Influenza Virus Vaccine (Fluzone Quad [id number]) 60 mcg IM .ONCE ONE Stop: 12/25/17 10:01 Insulin Human Regular (Novolin R) 0 unit SC [facility]; Protocol Last Admin: 12/24/17 12:47 Dose: 4 unit Ketorolac Tromethamine (Toradol) 15 mg IVP Q6 PRN PRN Reason: Pain, moderate (4-7) Loratadine (Claritin) 10 mg PO DAILY [facility] Last Admin: 12/24/17 10:14 Dose: 10 mg Montelukast Sodium (Singulair) 10 mg PO [facility] Last Admin: 12/23/17 22:18 Dose: 10 mg Morphine Sulfate (Morphine) 1 mg IVP Q4 PRN PRN Reason: Pain, severe (8-10) Last Admin: 12/22/17 23:58 Dose: 1 mg Rosuvastatin Calcium (Crestor) 5 mg PO [facility] Last Admin: 12/23/17 22:18 Dose: 5 mg - Labs Labs: 12/24/17 07:56 12/24/17 07:56 PT 10.9 SECONDS (9.7-12.2) 12/23/17 06:47 INR 1.0 12/23/17 06:47 APTT 29 SECONDS (21-34) 12/23/17 06:47 Attending/Attestation - Attestation I have personally seen and examined this patient.: Yes I have fully participated in the care of the patient.: Yes I have reviewed all pertinent clinical information, including history, physical exam and plan: Yes Notes (Text): Medical attending: Patient was seen and examined by me. Agree with the above no te by the resident The patient was not in any acute distress, the pain was moderate level she explained to us. The patient was using the incentive spirotemeter like we talked about. Currently has a [place] cather at this moment The patient will need to go to rehab once ready Yuri Brice 12/24/17 13:58
[2017-12-24 08:05] LABS: BASO # 0.1 K/uL (0.0-0.2); BASO % 0.4 % (0.0-2.0); EOS # 0.1 K/uL (0.0-0.7); EOS % 0.5 % (0.0-4.0); HEMOGLOBIN 11.2 g/dL (11.0-16.0); LYMPH # 2.7 K/uL (1.0-4.3); LYMPH % 16.6 % (20.0-40.0); MEAN CELL VOLUME 89.3 fL (81.0-99.0); MEAN CORPUSCULAR HEMOGLOBIN 30.7 pg (27.0-31.0); MEAN CORPUSCULAR HGB CONC 34.4 g/dL (33.0-37.0); MEAN PLATELET VOLUME 9.4 fL (7.2-11.7); MONO # 1.2 K/uL (0.0-0.8); MONO % 7.1 % (0.0-10.0); NEUT # 12.3 K/uL (1.8-7.0); NEUT % 75.4 % (50.0-75.0); NRBC % 0.1 % (0.0-2.0); RBC 3.65 Mil/uL (3.80-5.20); RED CELL DISTRIBUTION WIDTH 13.8 % (11.5-14.5); WHITE BLOOD COUNT 16.4 K/uL (4.8-10.8)
[2017-12-24] MEDS: (Novolin R) Insulin Human Regular 100 units/ml vial SC SCH ×4 (08:25→21:35)
[2017-12-24 08:30] LABS: ALB/GLOB RATIO 1.2 (1.0-2.1); ALBUMIN 3.4 g/dL (3.5-5.0); ALT/SGPT 23 U/L (9-52); AST/SGOT 27 U/L (14-36); BLOOD UREA NITROGEN 10 mg/dL (7-17); CALCIUM 8.3 mg/dl (8.6-10.4); GFR NON-AFRICAN AMERICAN > 60
[2017-12-24] MEDS: Bacitracin Ointment 30 GM TUBE TOP SCH ×2 (10:14→18:01)
--- NOTE | 2017-12-24 11:15 | CP.PCM.PN ---
Subjective - Date & Time of Evaluation Date of Evaluation: 12/24/17 Time of Evaluation: 11:14 - Subjective Subjective: POD 1 unable to walk with PT inc pain only - no LE sx 5/5 throughout sens intact P OOB cont MEDICAL CSR SS eval Objective - Vital Signs/Intake and Output Vital Signs (last 24 hours): Temp Pulse Resp BP Pulse Ox 100.3 F H 87 18 132/81 97 12/24/17 08:37 12/24/17 08:37 12/24/17 08:37 12/24/17 08:37 12/24/17 08:37 Intake and Output: 12/24/17 12/24/17 06:59 18:59 Intake Total 600 Output Total 1000 Balance -400 - Medications Medications: Current Medications Acetaminophen (Tylenol 325mg Tab) 650 mg PO Q6 PRN PRN Reason: Fever >100.4 F Albuterol/Ipratropium (Duoneb 3 Mg/0.5 Mg (3 Ml) Ud) 3 ml INH RQ4 PRN PRN Reason: Wheezing Bacitracin (Bacitracin) 0 gm TOP BID [facility] Last Admin: 12/24/17 10:14 Dose: 1 applic Dextrose (Dextrose 50% Inj) 0 ml IV STAT PRN; Protocol PRN Reason: Hypoglycemia Protocol Dextrose (Glutose 15) 0 gm PO ONCE PRN; Protocol PRN Reason: Hypoglycemia Protocol Ezetimibe (Zetia) 10 mg PO HS [facility] Last Admin: 12/23/17 22:18 Dose: 10 mg Glucagon (Glucagen Diagnostic Kit) 0 mg IM STAT PRN; Protocol PRN Reason: Hypoglycemia Protocol Glyburide (Micronase) 2.5 mg PO BID [facility] Last Admin: 12/24/17 10:14 Dose: 2.5 mg Hydromorphone/Sodium Chloride (Dilaudid Colorer) 4 mg IV Q4H PRN; Protocol PRN Reason: Pain, moderate (4-7) Last Admin: 12/24/17 00:23 Dose: 4 mg Sodium Chloride (Sodium Chloride 0.9%) 1,000 mls @ 75 mls/hr IV .[id number] [facility] Last Admin: 12/23/17 19:41 Dose: Not Given Lactated Ringer's (Lactated Ringer's) 1,000 mls @ 100 mls/hr IV .Q10H [facility] Last Admin: 12/24/17 10:15 Dose: Not Given Dextrose (Dextrose 5% In Water 1000 Ml) 1,000 mls @ 0 mls/hr IV .Q0M PRN; Protocol PRN Reason: Hypoglycemia Protocol Influenza Virus Vaccine (Fluzone Quad 2421-2103) 60 mcg IM .ONCE ONE Stop: 12/25/17 10:01 Insulin Human Regular (Novolin R) 0 unit SC [facility]; Protocol Last Admin: 12/24/17 08:25 Dose: 2 units Ketorolac Tromethamine (Toradol) 15 mg IVP Q6 PRN PRN Reason: Pain, moderate (4-7) Loratadine (Claritin) 10 mg PO DAILY [facility] Last Admin: 12/24/17 10:14 Dose: 10 mg Montelukast Sodium (Singulair) 10 mg PO [facility] Last Admin: 12/23/17 22:18 Dose: 10 mg Morphine Sulfate (Morphine) 1 mg IVP Q4 PRN PRN Reason: Pain, severe (8-10) Last Admin: 12/22/17 23:58 Dose: 1 mg Rosuvastatin Calcium (Crestor) 5 mg PO HS [facility] Last Admin: 12/23/17 22:18 Dose: 5 mg - Labs Labs: 12/24/17 07:56 12/24/17 07:56 PT 10.9 SECONDS (9.7-12.2) 12/23/17 06:47 INR 1.0 12/23/17 06:47 APTT 29 SECONDS (21-34) 12/23/17 06:47
[2017-12-24] MEDS: Sodium Chloride 0.9% 1,000 ML IV SCH (12:22)
[2017-12-24] MEDS: Enoxaparin 40 mg Syringe SC SCH (12:56)
[2017-12-25] MEDS: Sodium Chloride 0.9% 1,000 ML IV SCH (06:56)
[2017-12-25 07:39] LABS: BASO # 0.1 K/uL (0.0-0.2); BASO % 0.4 % (0.0-2.0); EOS # 0.2 K/uL (0.0-0.7); EOS % 1.2 % (0.0-4.0); HEMOGLOBIN 10.7 g/dL (11.0-16.0); LYMPH # 2.6 K/uL (1.0-4.3); LYMPH % 15.4 % (20.0-40.0); MEAN CELL VOLUME 88.6 fL (81.0-99.0); MEAN CORPUSCULAR HEMOGLOBIN 30.7 pg (27.0-31.0); MEAN CORPUSCULAR HGB CONC 34.6 g/dL (33.0-37.0); MEAN PLATELET VOLUME 8.8 fL (7.2-11.7); MONO # 1.2 K/uL (0.0-0.8); MONO % 7.3 % (0.0-10.0); NEUT # 12.7 K/uL (1.8-7.0); NEUT % 75.7 % (50.0-75.0); NRBC % 0.1 % (0.0-2.0); RBC 3.49 Mil/uL (3.80-5.20); RED CELL DISTRIBUTION WIDTH 13.5 % (11.5-14.5); WHITE BLOOD COUNT 16.8 K/uL (4.8-10.8)
[2017-12-25] MEDS: (Novolin R) Insulin Human Regular 100 units/ml vial SC SCH ×6 (07:49→21:44)
[2017-12-25 09:18] LABS: ALBUMIN 3.3 g/dL (3.5-5.0); BLOOD UREA NITROGEN 6 mg/dL (7-17); CALCIUM 8.4 mg/dl (8.6-10.4); GFR NON-AFRICAN AMERICAN > 60
[2017-12-25 09:19] LABS: ALB/GLOB RATIO 1.1 (1.0-2.1); ALT/SGPT 27 U/L (9-52); AST/SGOT 31 U/L (14-36)
[2017-12-25] MEDS ORDERED: Influenza Vaccine 60 MCG/0.5 ML SYR (3 yr & up) IM ONE (10:00)
[2017-12-25] MEDS: Enoxaparin 40 mg Syringe SC SCH (10:08)
[2017-12-25] MEDS: Bacitracin Ointment 30 GM TUBE TOP SCH ×2 (10:11→17:10)
[2017-12-25] MEDS ORDERED: Oxycodone/Acetaminophen 5/325 mg Tab PO PRN (11:13)
--- NOTE | 2017-12-25 11:15 | CP.PCM.PN ---
Subjective - Date & Time of Evaluation Date of Evaluation: 12/25/17 Time of Evaluation: 11:14 - Subjective Subjective: pod 2 pt reports less pain no leg pain has old sensory complaint ble nothing new st 5/5 ambulated plan: change to PO meds Clear from neurosurgical point to go to subacute rehab today Objective - Vital Signs/Intake and Output Vital Signs (last 24 hours): Temp Pulse Resp BP Pulse Ox 101.0 F H 90 20 139/79 98 12/25/17 10:10 12/25/17 07:00 12/25/17 07:00 12/25/17 07:00 12/25/17 07:00 Intake and Output: 12/25/17 12/25/17 06:59 18:59 Intake Total 600 Output Total 1400 Balance -800 - Medications Medications: Current Medications Acetaminophen (Tylenol 325mg Tab) 650 mg PO Q6 PRN PRN Reason: Fever >100.4 F Last Admin: 12/25/17 10:10 Dose: 650 mg Albuterol/Ipratropium (Duoneb 3 Mg/0.5 Mg (3 Ml) Ud) 3 ml INH RQ4 PRN PRN Reason: Wheezing Bacitracin (Bacitracin) 0 gm TOP BID [facility] Last Admin: 12/25/17 10:11 Dose: 1 applic Dextrose (Dextrose 50% Inj) 0 ml IV STAT PRN; Protocol PRN Reason: Hypoglycemia Protocol Dextrose (Glutose 15) 0 gm PO ONCE PRN; Protocol PRN Reason: Hypoglycemia Protocol Docusate Sodium (Colace) 100 mg PO TID [facility] Last Admin: 12/25/17 10:08 Dose: 100 mg Ezetimibe (Zetia) 10 mg PO HS [facility] Last Admin: 12/24/17 21:49 Dose: Not Given Enoxaparin Sodium (Lovenox) 40 mg SC DAILY [facility] Last Admin: 12/25/17 10:08 Dose: 40 mg Ferrous Sulfate (Feosol) 325 mg PO DAILY [facility] Last Admin: 12/25/17 10:08 Dose: 325 mg Glucagon (Glucagen Diagnostic Kit) 0 mg IM STAT PRN; Protocol PRN Reason: Hypoglycemia Protocol Glyburide (Micronase) 2.5 mg PO BID [facility] Last Admin: 12/25/17 10:08 Dose: 2.5 mg Hydromorphone/Sodium Chloride (Dilaudid Certified Pest Control Technician) 4 mg IV Q4H PRN; Protocol PRN Reason: Pain, moderate (4-7) Last Admin: 12/25/17 02:40 Dose: 4 mg Sodium Chloride (Sodium Chloride 0.9%) 1,000 mls @ 75 mls/hr IV .[id number] [facility] Last Admin: 12/25/17 06:56 Dose: 75 mls/hr Lactated Ringer's (Lactated Ringer's) 1,000 mls @ 100 mls/hr IV .Q10H [facility] Last Admin: 12/24/17 10:15 Dose: Not Given Dextrose (Dextrose 5% In Water 1000 Ml) 1,000 mls @ 0 mls/hr IV .Q0M PRN; Protocol PRN Reason: Hypoglycemia Protocol Insulin Human Regular (Novolin R) 0 unit SC [facility]; Protocol Last Admin: 12/25/17 07:49 Dose: 4 unit Ketorolac Tromethamine (Toradol) 15 mg IVP Q6 PRN PRN Reason: Pain, moderate (4-7) Loratadine (Claritin) 10 mg PO DAILY [facility] Last Admin: 12/25/17 10:08 Dose: 10 mg Montelukast Sodium (Singulair) 10 mg PO [facility] Last Admin: 12/24/17 21:44 Dose: 10 mg Morphine Sulfate (Morphine) 1 mg IVP Q4 PRN PRN Reason: Pain, severe (8-10) Last Admin: 12/22/17 23:58 Dose: 1 mg Rosuvastatin Calcium (Crestor) 5 mg PO HS [facility] Last Admin: 12/24/17 21:44 Dose: 5 mg - Labs Labs: 12/25/17 07:24 12/25/17 07:24 PT 10.9 SECONDS (9.7-12.2) 12/23/17 06:47 INR 1.0 12/23/17 06:47 APTT 29 SECONDS (21-34) 12/23/17 06:47
[2017-12-25] MEDS: oxyCODONE 20 mg ER Tab (oxyCONTIN) PO SCH ×2 (12:14→21:42)
[2017-12-25] MEDS: Bisacodyl 5mg EC Tab PO SCH (13:29)
--- NOTE | 2017-12-25 13:37 | CP.PCM.PN ---
Subjective - Date & Time of Evaluation Date of Evaluation: 12/25/17 Time of Evaluation: 13:34 - Subjective Subjective: Medicine Dr. Bennett's Service Patient seen and examined at bedside this morning. POD2. Patient c/o 6/10 post surgical pain. She denies having post of BM as of now. Denies chest pain, SOB, cough, nausea, vomiting, diarrhea, headache. She did feel a little hot and spiked fever 101.4 at around 12am last night, but patient thinks it just gets hot in the room. She is expecting to be discharged to the rehab facility at some point. Objective - Vital Signs/Intake and Output Vital Signs (last 24 hours): Temp Pulse Resp BP Pulse Ox 98.9 F 90 20 139/79 98 12/25/17 11:10 12/25/17 07:00 12/25/17 07:00 12/25/17 07:00 12/25/17 07:00 Intake and Output: 12/25/17 12/25/17 06:59 18:59 Intake Total 600 Output Total 1400 Balance -800 - Medications Medications: Current Medications Acetaminophen (Tylenol 325mg Tab) 650 mg PO Q6 PRN PRN Reason: Fever >100.4 F Last Admin: 12/25/17 10:10 Dose: 650 mg Albuterol/Ipratropium (Duoneb 3 Mg/0.5 Mg (3 Ml) Ud) 3 ml INH RQ4 PRN PRN Reason: Wheezing Bacitracin (Bacitracin) 0 gm TOP BID [facility] Last Admin: 12/25/17 10:11 Dose: 1 applic Bisacodyl (Dulcolax) 5 mg PO DAILY [facility] Last Admin: 12/25/17 13:29 Dose: 5 mg Dextrose (Dextrose 50% Inj) 0 ml IV STAT PRN; Protocol PRN Reason: Hypoglycemia Protocol Dextrose (Glutose 15) 0 gm PO ONCE PRN; Protocol PRN Reason: Hypoglycemia Protocol Docusate Sodium (Colace) 100 mg PO TID [facility] Last Admin: 12/25/17 13:29 Dose: 100 mg Ezetimibe (Zetia) 10 mg PO HS [facility] Last Admin: 12/24/17 21:49 Dose: Not Given Enoxaparin Sodium (Lovenox) 40 mg SC DAILY [facility] Last Admin: 12/25/17 10:08 Dose: 40 mg Ferrous Sulfate (Feosol) 325 mg PO DAILY [facility] Last Admin: 12/25/17 10:08 Dose: 325 mg Glucagon (Glucagen Diagnostic Kit) 0 mg IM STAT PRN; Protocol PRN Reason: Hypoglycemia Protocol Glyburide (Micronase) 2.5 mg PO BID [facility] Last Admin: 12/25/17 10:08 Dose: 2.5 mg Lactated Ringer's (Lactated Ringer's) 1,000 mls @ 100 mls/hr IV .Q10H [facility] Last Admin: 12/24/17 10:15 Dose: Not Given Dextrose (Dextrose 5% In Water 1000 Ml) 1,000 mls @ 0 mls/hr IV .Q0M PRN; Protocol PRN Reason: Hypoglycemia Protocol Insulin Human Regular (Novolin R) 0 unit SC [facility]; Protocol Last Admin: 12/25/17 12:13 Dose: 6 unit Ketorolac Tromethamine (Toradol) 15 mg IVP Q6 PRN PRN Reason: Pain, moderate (4-7) Loratadine (Claritin) 10 mg PO DAILY [facility] Last Admin: 12/25/17 10:08 Dose: 10 mg Montelukast Sodium (Singulair) 10 mg PO [facility] Last Admin: 12/24/17 21:44 Dose: 10 mg Morphine Sulfate (Morphine) 1 mg IVP Q4 PRN PRN Reason: Pain, severe (8-10) Last Admin: 12/22/17 23:58 Dose: 1 mg Oxycodone HCl (Oxycontin Extended Release Tab) 20 mg PO Q12 [facility] Last Admin: 12/25/17 12:14 Dose: 20 mg Oxycodone/Acetaminophen (Percocet 5/325 Mg Tab) 2 tab PO Q4H PRN PRN Reason: Pain, Mild (1-3) Stop: 12/28/17 11:14 Rosuvastatin Calcium (Crestor) 5 mg PO [facility] Last Admin: 12/24/17 21:44 Dose: 5 mg - Labs Labs: 12/25/17 07:24 12/25/17 07:24 PT 10.9 SECONDS (9.7-12.2) 12/23/17 06:47 INR 1.0 12/23/17 06:47 APTT 29 SECONDS (21-34) 12/23/17 06:47 - Constitutional Appears: Well, Non-toxic - Head Exam Head Exam: ATRAUMATIC, NORMAL INSPECTION - Eye Exam Eye Exam: EOMI, Normal appearance - ENT Exam ENT Exam: Mucous Membranes Moist, Normal Exam - Respiratory Exam Respiratory Exam: Clear to Ausculation Bilateral, NORMAL BREATHING PATTERN - Cardiovascular Exam Cardiovascular Exam: REGULAR RHYTHM - GI/Abdominal Exam GI & Abdominal Exam: Soft, Normal Bowel Sounds - Extremities Exam Extremities Exam: absent: Pedal Edema - Neurological Exam Neurological Exam: Alert, Awake, Oriented x3 Neuro motor strength exam: Left Lower Extremity: 3 (unable to adequately lift leg against gravity), Right Lower Extremity: 3 (unable to adequately lift leg against gravity) - Psychiatric Exam Psychiatric exam: Normal Affect, Normal Mood - Skin Skin Exam: Dry, Intact, Normal Color, Warm Assessment and Plan - Assessment and Plan (Free Text) Assessment: 52 year old female with history of Type 2 DM, severe lumbar disk disease admitted for lumbar disk disease and status post posterior lumbar fusion, decompression and fixation of L4-5, L5, S1 with Dr. Lake. Fever of unknown origin Patient with Tmax 101.4 around 12am on 12/25. Patient states she felt hot today. Leukocytosis WBC 16.4 -> 16.8 f/u CXR, urine cx, blood cx - ordered 12/25 monitor VS encourage incentive spirometer 10x an hour and frequent ambulation, PT/OT per neurosurgery, they do not recommend starting abx unless there is a source of infection confirmed, but started on: -vancomycin 1g q12h on 12/25 - ordered vanc trough 30 min before the 4th dose, must f/u with nursing -zosyn 3.375g q6h on 12/25 Status post posterior lumbar fusion, decompression and fixation of L4-5, L5, S1 Post op day 2. Neurosurgery Dr. Lake consulted, help appreciated Tylenol 650mg PRN dilaudid 4 mg IV Q4H PRN Toradol 15mg Q6 PRN Morphine 1mg Q4 PRN percocet 5 mg Q4H PRN Type 2 Diabetes Blood glucose levels 200s today, above inpatient recommended target 140-180 4U before meals and no long acting for now started home metformin 500 mg BID Glyburide 2.5mg BID Hypoglycemic protocol Hyperlipidemia Crestor 5mg HS Zetia 10mg PO HS History of Asthma Albuterol Q4 PRN Singulair 10mg PO HS Claritin 10mg PO Daily Left big toe ingrown tail Apply bacitracin to area Xray of left foot ordered 12/25 Prophylaxis DVT: SCDs, Lovenox 40mg SC GI: not indicated Case discussed with Dr. Sabrina Kelly, PGY1
--- NOTE | 2017-12-25 15:47 | RAD ---
Date of service: 12/25/2017 HISTORY: fever COMPARISON: In chest radiograph dated 12/22/2017. TECHNIQUE: Chest PA and lateral FINDINGS: LUNGS: Patchy peripheral left basilar and medial right basilar infiltrates. PLEURA: No significant pleural effusion identified. No pneumothorax apparent. CARDIOVASCULAR: Aortic atherosclerotic calcifications. Cardiomediastinal silhouette stably enlarged. OSSEOUS STRUCTURES: Unchanged. VISUALIZED UPPER ABDOMEN: Normal. OTHER FINDINGS: None. IMPRESSION: Patchy bibasal infiltrates.
[2017-12-25] MEDS: Vancomycin 1 gm/NS 200 ml 1 GM/200 ML BAG IVPB SCH (17:00)
[2017-12-25] MEDS: oxyCODONE 5 mg Immediate Release Tab PO PRN (17:06)
[2017-12-25] MEDS: Piperacillin/Tazobact 3.375 GM in Sodium Chloride 100 ML IVPB SCH ×2 (17:08→22:30)
[2017-12-25] MEDS ORDERED: Aluminum Hydroxide/Magnesium Hydroxide Susp (30 mL) PO ONE (18:10)
[2017-12-25] MEDS: Simethicone 80 mg Chewtab PO SCH ×2 (19:56→21:42)
[2017-12-25 20:03] LABS: SQUAMOUS EPITHIAL 17 /hpf (0-5); URINE BACTERIA RARE (<OCC); URINE BILIRUBIN NEGATIVE (NEGATIVE); URINE BLOOD 1+ (NEGATIVE); URINE CLARITY Hazy (Clear); URINE COLOR Yellow (YELLOW); URINE GLUCOSE (UA) 3+ mg/dL (Normal); URINE LEUKOCYTE ESTERASE 1+ Leu/uL (Negative); URINE PROTEIN NEGATIVE (NEGATIVE); URINE UROBILINOGEN NORMAL mg/dL (0.2-1.0)
--- NOTE | 2017-12-25 21:21 | CARD ---
APPROVED REPORT Date of service: 12/22/2017 EKG Measurement Heart [id number] <Conclusion> Normal sinus rhythm Normal ECG
[2017-12-26] MEDS: Piperacillin/Tazobact 3.375 GM in Sodium Chloride 100 ML IVPB SCH ×2 (02:29→10:00)
[2017-12-26] MEDS: Vancomycin 1 gm/NS 200 ml 1 GM/200 ML BAG IVPB SCH (03:15)
[2017-12-26] MEDS: (Novolin R) Insulin Human Regular 100 units/ml vial SC SCH ×8 (08:08→21:42)
--- NOTE | 2017-12-26 08:52 | RAD ---
Date of service: 12/26/2017 PROCEDURE: Left Foot Radiographs. HISTORY: L great toe infection COMPARISON: None. FINDINGS: BONES: No acute fracture or dislocation. No destructive bony lesion appreciated. Patient status post arthrodesis of the great toe by solitary compression screw. 2 pins are identified at the 1st metatarsal bone distally, possibly status post bunionectomy.. JOINTS: Degenerative changes seen throughout the interphalangeal joints comprised of cortical sclerosis. No subluxation or dislocation the examination. SOFT TISSUES: Diffuse soft tissue edema is questioned throughout the foot OTHER FINDINGS: None. IMPRESSION: Status post arthrodesis 1st digit interphalangeal joint with 2 pins identified at the distal 1st metatarsal bone, possibly status post bunionectomy.
[2017-12-26] MEDS: Bisacodyl 5mg EC Tab PO SCH (10:27)
[2017-12-26] MEDS: oxyCODONE 20 mg ER Tab (oxyCONTIN) PO SCH ×2 (10:27→21:41)
[2017-12-26] MEDS: Enoxaparin 40 mg Syringe SC SCH (10:28)
[2017-12-26] MEDS: Simethicone 80 mg Chewtab PO SCH ×4 (10:29→21:41)
[2017-12-26] MEDS: Bacitracin Ointment 30 GM TUBE TOP SCH ×2 (10:35→17:19)
--- NOTE | 2017-12-26 11:31 | CP.PCM.PN ---
Subjective - Date & Time of Evaluation Date of Evaluation: 12/26/17 Time of Evaluation: 11:24 - Subjective Subjective: SPINE - POD #3 Pt resting in bed. States she is feeling a little better. Has been OOB to chair. Amb w PT yesterday. Voiding. + flatus but no BM yet. VSS. Temp 98-99. Moving all extremities actively. Neuro grossly intact. Dressing reportedly dry (some old blood staining). Plan: Await rehab bed for transfer. One temp spike very common post fusion, almost always resp atelectasis in nature. Would hold antibiotics and observe. Objective - Vital Signs/Intake and Output Vital Signs (last 24 hours): Temp Pulse Resp BP Pulse Ox 98.3 F 104 H 20 144/74 96 12/26/17 07:00 12/26/17 07:00 12/26/17 07:00 12/26/17 07:00 12/26/17 07:00 Intake and Output: 12/26/17 12/26/17 06:59 18:59 Intake Total 250 Balance 250 - Medications Medications: Current Medications Acetaminophen (Tylenol 325mg Tab) 650 mg PO Q6 PRN PRN Reason: Fever >100.4 F Last Admin: 12/25/17 10:10 Dose: 650 mg Albuterol/Ipratropium (Duoneb 3 Mg/0.5 Mg (3 Ml) Ud) 3 ml INH RQ4 PRN PRN Reason: Wheezing Bacitracin (Bacitracin) 0 gm TOP BID [facility] Last Admin: 12/26/17 10:35 Dose: 1 applic Bisacodyl (Dulcolax) 5 mg PO DAILY [facility] Last Admin: 12/26/17 10:27 Dose: 5 mg Dextrose (Dextrose 50% Inj) 0 ml IV STAT PRN; Protocol PRN Reason: Hypoglycemia Protocol Dextrose (Glutose 15) 0 gm PO ONCE PRN; Protocol PRN Reason: Hypoglycemia Protocol Docusate Sodium (Colace) 100 mg PO TID [facility] Last Admin: 12/26/17 10:29 Dose: 100 mg Ezetimibe (Zetia) 10 mg PO HS [facility] Last Admin: 12/26/17 00:00 Dose: 10 mg Enoxaparin Sodium (Lovenox) 40 mg SC DAILY [facility] Last Admin: 12/26/17 10:28 Dose: 40 mg Ferrous Sulfate (Feosol) 325 mg PO DAILY [facility] Last Admin: 12/26/17 10:29 Dose: 325 mg Glucagon (Glucagen Diagnostic Kit) 0 mg IM STAT PRN; Protocol PRN Reason: Hypoglycemia Protocol Glyburide (Micronase) 2.5 mg PO BID [facility] Last Admin: 12/26/17 10:29 Dose: 2.5 mg Lactated Ringer's (Lactated Ringer's) 1,000 mls @ 100 mls/hr IV .Q10H [facility] Last Admin: 12/24/17 10:15 Dose: Not Given Dextrose (Dextrose 5% In Water 1000 Ml) 1,000 mls @ 0 mls/hr IV .Q0M PRN; Protocol PRN Reason: Hypoglycemia Protocol Piperacillin Sod/Tazobactam (Sod 3.375 gm/ Sodium Chloride) 100 mls @ 200 mls/hr IVPB Q6H [facility]; Protocol Stop: 01/01/18 15:01 Last Admin: 12/26/17 10:00 Dose: 200 mls/hr Vancomycin/Sodium Chloride (Vancomycin 1 Gm/Ns 200 Ml) 1 gm in 200 mls @ 133 mls/hr IVPB Q12H [facility]; Protocol Stop: 01/01/18 15:31 Last Admin: 12/26/17 03:15 Dose: 133 mls/hr Insulin Human Regular (Novolin R) 0 unit SC [facility]; Protocol Last Admin: 12/26/17 08:08 Dose: 4 unit Insulin Human Regular (Novolin R) 3 unit SC [facility] Last Admin: 12/26/17 08:08 Dose: 3 units Loratadine (Claritin) 10 mg PO DAILY [facility] Last Admin: 12/26/17 10:28 Dose: 10 mg Metformin HCl (Glucophage) 500 mg PO BIDCC [facility]PL[facility] Last Admin: 12/26/17 08:08 Dose: 500 mg Montelukast Sodium (Singulair) 10 mg PO HS [facility] Last Admin: 12/25/17 21:43 Dose: 10 mg Morphine Sulfate (Morphine) 1 mg IVP Q4 PRN PRN Reason: Pain, severe (8-10) Last Admin: 12/22/17 23:58 Dose: 1 mg Oxycodone HCl (Oxycontin Extended Release Tab) 20 mg PO Q12 [facility] Last Admin: 12/26/17 10:27 Dose: 20 mg Oxycodone HCl (Oxycodone Immediate Release Tab) 5 mg PO Q4 PRN PRN Reason: Pain, severe (8-10) Last Admin: 12/25/17 17:06 Dose: 5 mg Oxycodone/Acetaminophen (Percocet 5/325 Mg Tab) 2 tab PO Q4H PRN PRN Reason: Pain, Mild (1-3) Stop: 12/28/17 11:14 Rosuvastatin Calcium (Crestor) 5 mg PO [facility] Last Admin: 12/25/17 21:43 Dose: 5 mg Simethicone (Mylicon Chew Tab) 80 mg PO QID [facility] Last Admin: 12/26/17 10:29 Dose: 80 mg - Labs Labs: 12/25/17 07:24 12/25/17 07:24 PT 10.9 SECONDS (9.7-12.2) 12/23/17 06:47 INR 1.0 12/23/17 06:47 APTT 29 SECONDS (21-34) 12/23/17 06:47
--- NOTE | 2017-12-26 11:41 | CP.PCM.PN ---
Subjective - Date & Time of Evaluation Date of Evaluation: 12/26/17 Time of Evaluation: 10:00 - Subjective Subjective: Seen and examined this morning. Patient is sitting on bed,no sob,no fever,no nausea,no vomiting Spoke to Dr Don at 6T. Who agrees to stop antibiotics and monitor Her fever is likely post op fever. Lung atlectasis is expected Objective - Vital Signs/Intake and Output Vital Signs (last 24 hours): Temp Pulse Resp BP Pulse Ox 98.3 F 104 H 20 144/74 96 12/26/17 07:00 12/26/17 07:00 12/26/17 07:00 12/26/17 07:00 12/26/17 07:00 Intake and Output: 12/26/17 12/26/17 06:59 18:59 Intake Total 250 Balance 250 - Medications Medications: Current Medications Acetaminophen (Tylenol 325mg Tab) 650 mg PO Q6 PRN PRN Reason: Fever >100.4 F Last Admin: 12/25/17 10:10 Dose: 650 mg Albuterol/Ipratropium (Duoneb 3 Mg/0.5 Mg (3 Ml) Ud) 3 ml INH RQ4 PRN PRN Reason: Wheezing Bacitracin (Bacitracin) 0 gm TOP BID [facility] Last Admin: 12/26/17 10:35 Dose: 1 applic Bisacodyl (Dulcolax) 5 mg PO DAILY [facility] Last Admin: 12/26/17 10:27 Dose: 5 mg Dextrose (Dextrose 50% Inj) 0 ml IV STAT PRN; Protocol PRN Reason: Hypoglycemia Protocol Dextrose (Glutose 15) 0 gm PO ONCE PRN; Protocol PRN Reason: Hypoglycemia Protocol Docusate Sodium (Colace) 100 mg PO TID [facility] Last Admin: 12/26/17 10:29 Dose: 100 mg Ezetimibe (Zetia) 10 mg PO HS [facility] Last Admin: 12/26/17 00:00 Dose: 10 mg Enoxaparin Sodium (Lovenox) 40 mg SC DAILY [facility] Last Admin: 12/26/17 10:28 Dose: 40 mg Ferrous Sulfate (Feosol) 325 mg PO DAILY [facility] Last Admin: 12/26/17 10:29 Dose: 325 mg Glucagon (Glucagen Diagnostic Kit) 0 mg IM STAT PRN; Protocol PRN Reason: Hypoglycemia Protocol Glyburide (Micronase) 2.5 mg PO BID [facility] Last Admin: 12/26/17 10:29 Dose: 2.5 mg Lactated Ringer's (Lactated Ringer's) 1,000 mls @ 100 mls/hr IV .Q10H [facility] Last Admin: 12/24/17 10:15 Dose: Not Given Dextrose (Dextrose 5% In Water 1000 Ml) 1,000 mls @ 0 mls/hr IV .Q0M PRN; Protocol PRN Reason: Hypoglycemia Protocol Insulin Human Regular (Novolin R) 0 unit SC [facility]; Protocol Last Admin: 12/26/17 08:08 Dose: 4 unit Insulin Human Regular (Novolin R) 3 unit SC [facility] Last Admin: 12/26/17 08:08 Dose: 3 units Loratadine (Claritin) 10 mg PO DAILY [facility] Last Admin: 12/26/17 10:28 Dose: 10 mg [facility] Last Admin: 12/26/17 08:08 Dose: 500 mg Montelukast Sodium (Singulair) 10 mg PO [facility] Last Admin: 12/25/17 21:43 Dose: 10 mg Morphine Sulfate (Morphine) 1 mg IVP Q4 PRN PRN Reason: Pain, severe (8-10) Last Admin: 12/22/17 23:58 Dose: 1 mg Oxycodone HCl (Oxycontin Extended Release Tab) 20 mg PO Q12 [facility] Last Admin: 12/26/17 10:27 Dose: 20 mg Oxycodone HCl (Oxycodone Immediate Release Tab) 5 mg PO Q4 PRN PRN Reason: Pain, severe (8-10) Last Admin: 12/25/17 17:06 Dose: 5 mg Oxycodone/Acetaminophen (Percocet 5/325 Mg Tab) 2 tab PO Q4H PRN PRN Reason: Pain, Mild (1-3) Stop: 12/28/17 11:14 Rosuvastatin Calcium (Crestor) 5 mg PO [facility] Last Admin: 12/25/17 21:43 Dose: 5 mg Simethicone (Mylicon Chew Tab) 80 mg PO QID [facility] Last Admin: 12/26/17 10:29 Dose: 80 mg - Labs Labs: 12/25/17 07:24 12/25/17 07:24 PT 10.9 SECONDS (9.7-12.2) 12/23/17 06:47 INR 1.0 12/23/17 06:47 APTT 29 SECONDS (21-34) 12/23/17 06:47 - Constitutional Appears: Non-toxic - Head Exam Head Exam: NORMAL INSPECTION - Eye Exam Eye Exam: Normal appearance - ENT Exam ENT Exam: Mucous Membranes Moist - Neck Exam Neck Exam: Full ROM - Respiratory Exam Respiratory Exam: Clear to Ausculation Bilateral, NORMAL BREATHING PATTERN - Cardiovascular Exam Cardiovascular Exam: REGULAR RHYTHM - GI/Abdominal Exam GI & Abdominal Exam: Soft, Normal Bowel Sounds - Extremities Exam Extremities Exam: Full ROM - Back Exam Back Exam: NORMAL INSPECTION - Neurological Exam Neurological Exam: Awake, Oriented x3 - Psychiatric Exam Psychiatric exam: Normal Mood - Skin Skin Exam: Normal Color Assessment and Plan - Assessment and Plan (Free Text) Assessment: 52 year old female with history of Type 2 DM, severe lumbar disk disease admitted for lumbar disk disease and status post posterior lumbar fusion, decompression and fixation of L4-5, L5, S1 with Dr. Lake. Plan: 1.Status post posterior lumbar fusion, decompression and fixation of L4-5, L5, S1 Post op day 2. Neurosurgery Dr. Lake consulted, help appreciated Tylenol 650mg PRN dilaudid 4 mg IV Q4H PRN Toradol 15mg Q6 PRN Morphine 1mg Q4 PRN percocet 5 mg Q4H PRN 2.s/p Fever likely post op fever no fever today Patient with Tmax 101.4 around 12am on 12/25. Patient states she felt hot today. Leukocytosis WBC 16.4 -> 16.8 f/u CXR, urine cx, blood cx - ordered 12/25 monitor VS encourage incentive spirometer 10x an hour and frequent ambulation, PT/OT d/w Dr Don .As per him her fever likely post op. Agrees to stop antibiotics and monitor d/w Patient Type 2 Diabetes Blood glucose levels 200s today, above inpatient recommended target 140-180 4U before meals and no long acting for now started home metformin 500 mg BID Glyburide 2.5mg BID Hypoglycemic protocol Hyperlipidemia Crestor 5mg HS Zetia 10mg PO HS
[2017-12-26 14:13] LABS: BASO # 0.1 K/uL (0.0-0.2); BASO % 0.7 % (0.0-2.0); EOS # 0.2 K/uL (0.0-0.7); EOS % 0.9 % (0.0-4.0); HEMOGLOBIN 10.3 g/dL (11.0-16.0); LYMPH # 2.7 K/uL (1.0-4.3); LYMPH % 15.6 % (20.0-40.0); MEAN CORPUSCULAR HGB CONC 34.8 g/dL (33.0-37.0); MEAN PLATELET VOLUME 9.3 fL (7.2-11.7); MONO # 0.8 K/uL (0.0-0.8); MONO % 4.6 % (0.0-10.0); NEUT # 13.5 K/uL (1.8-7.0); NEUT % 78.2 % (50.0-75.0); RBC 3.34 Mil/uL (3.80-5.20); RED CELL DISTRIBUTION WIDTH 13.4 % (11.5-14.5); WHITE BLOOD COUNT 17.3 K/uL (4.8-10.8)
[2017-12-26 14:38] LABS: ALB/GLOB RATIO 1.1 (1.0-2.1); ALBUMIN 3.5 g/dL (3.5-5.0); ALT/SGPT 34 U/L (9-52); AST/SGOT 38 U/L (14-36); BLOOD UREA NITROGEN 9 mg/dL (7-17); CALCIUM 8.6 mg/dl (8.6-10.4); GFR NON-AFRICAN AMERICAN > 60
[2017-12-26] MEDS: oxyCODONE 5 mg Immediate Release Tab PO PRN (15:56)
[2017-12-26] MEDS ORDERED: Bisacodyl 5mg EC Tab PO ONE (18:00)
[2017-12-26] MEDS ORDERED: Potassium Chloride 20 mEq/15 ml LIQ UD PO ONE (21:14)
--- NOTE | 2017-12-27 01:34 | CP.PCM.PN ---
<Yuri Melchor - Last Filed: 12/27/17 04:36> Subjective - Date & Time of Evaluation Date of Evaluation: 12/27/17 Time of Evaluation: 01:34 - Subjective Subjective: Progress note for Hospitalist service Patient seen and examined at bedside. She states she still has not had a bowel movement yet. She also states she feels that her left leg is more swollen than before. She denies fevers, chills, chest pain, shortness of breath, lightheadedness, dizziness, abdominal pain, nausea, vomiting, diarrhea, leg pain. Patient was advised to let her nurse known if she develops shortness of breath. Objective - Vital Signs/Intake and Output Vital Signs (last 24 hours): Temp Pulse Resp BP Pulse Ox 98.3 F 96 H 20 131/70 96 12/26/17 23:15 12/26/17 23:15 12/26/17 23:15 12/26/17 23:15 12/26/17 23:15 Intake and Output: 12/26/17 12/27/17 18:59 05:59 Intake Total 300 Balance 300 - Medications Medications: Current Medications Acetaminophen (Tylenol 325mg Tab) 650 mg PO Q6 PRN PRN Reason: Fever >100.4 F Last Admin: 12/25/17 10:10 Dose: 650 mg Albuterol/Ipratropium (Duoneb 3 Mg/0.5 Mg (3 Ml) Ud) 3 ml INH RQ4 PRN PRN Reason: Wheezing Bacitracin (Bacitracin) 0 gm TOP BID [facility] Last Admin: 12/26/17 17:19 Dose: 1 applic Bisacodyl (Dulcolax) 5 mg PO DAILY [facility] Last Admin: 12/26/17 10:27 Dose: 5 mg Dextrose (Dextrose 50% Inj) 0 ml IV STAT PRN; Protocol PRN Reason: Hypoglycemia Protocol Dextrose (Glutose 15) 0 gm PO ONCE PRN; Protocol PRN Reason: Hypoglycemia Protocol Docusate Sodium (Colace) 100 mg PO TID [facility] Last Admin: 12/26/17 17:04 Dose: 100 mg Ezetimibe (Zetia) 10 mg PO HS [facility] Last Admin: 12/26/17 21:44 Dose: 10 mg Enoxaparin Sodium (Lovenox) 40 mg SC DAILY [facility] Last Admin: 12/26/17 10:28 Dose: 40 mg Ferrous Sulfate (Feosol) 325 mg PO DAILY [facility] Last Admin: 12/26/17 10:29 Dose: 325 mg Glucagon (Glucagen Diagnostic Kit) 0 mg IM STAT PRN; Protocol PRN Reason: Hypoglycemia Protocol Glyburide (Micronase) 2.5 mg PO BID [facility] Last Admin: 12/26/17 17:04 Dose: 2.5 mg Dextrose (Dextrose 5% In Water 1000 Ml) 1,000 mls @ 0 mls/hr IV .Q0M PRN; Protocol PRN Reason: Hypoglycemia Protocol Insulin Human Regular (Novolin R) 0 unit SC [facility]; Protocol Last Admin: 12/26/17 21:26 Dose: Not Given Insulin Human Regular (Novolin R) 3 unit SC [facility] Last Admin: 12/26/17 21:42 Dose: 3 units Loratadine (Claritin) 10 mg PO DAILY [facility] Last Admin: 12/26/17 10:28 Dose: 10 mg Metformin HCl (Glucophage) 500 mg PO BIDCC [facility] Last Admin: 12/26/17 08:08 Dose: 500 mg Montelukast Sodium (Singulair) 10 mg PO HS [facility] Last Admin: 12/26/17 21:41 Dose: 10 mg Oxycodone HCl (Oxycontin Extended Release Tab) 20 mg PO Q12 [facility] Last Admin: 12/26/17 21:41 Dose: 20 mg Oxycodone HCl (Oxycodone Immediate Release Tab) 5 mg PO Q4 PRN PRN Reason: Pain, severe (8-10) Last Admin: 12/26/17 15:56 Dose: 5 mg Oxycodone/Acetaminophen (Percocet 5/325 Mg Tab) 2 tab PO Q4H PRN PRN Reason: Pain, Mild (1-3) Stop: 12/28/17 11:14 Rosuvastatin Calcium (Crestor) 5 mg PO HS [facility] Last Admin: 12/26/17 21:41 Dose: 5 mg Simethicone (Mylicon Chew Tab) 80 mg PO QID [facility] Last Admin: 12/26/17 21:41 Dose: 80 mg - Labs Labs: 12/26/17 14:01 12/26/17 14:01 PT 10.9 SECONDS (9.7-12.2) 12/23/17 06:47 INR 1.0 10/31/18 06:47 APTT 29 SECONDS (21-34) 12/23/17 06:47 - Constitutional Appears: Well, No Acute Distress - Head Exam Head Exam: ATRAUMATIC, NORMOCEPHALIC - Eye Exam Eye Exam: EOMI - ENT Exam ENT Exam: Mucous Membranes Moist - Neck Exam Neck Exam: Full ROM. absent: Lymphadenopathy, Tenderness, Thyromegaly - Respiratory Exam Respiratory Exam: Clear to Ausculation Bilateral. absent: Rales, Rhonchi, Wheezes, Respiratory Distress, Stridor - Cardiovascular Exam Cardiovascular Exam: REGULAR RHYTHM, +S1, +S2. absent: Gallop, Rubs, Murmur - GI/Abdominal Exam GI & Abdominal Exam: Soft, Normal Bowel Sounds. absent: Distended, Firm, Guarding, Tenderness, Organomegaly, Rebound - Extremities Exam Extremities Exam: Normal Capillary Refill, Pedal Edema. absent: Calf Tenderness, Tenderness Additional comments: Mild lower extremity swelling bilaterally - Back Exam Back Exam: absent: CVA tenderness (L), CVA tenderness (R) - Neurological Exam Neurological Exam: Alert, Awake, Oriented x3 - Skin Skin Exam: Dry, Intact, Warm Assessment and Plan - Assessment and Plan (Free Text) Plan: Assessment 52 year old female with history of Type 2 DM, severe lumbar disk disease admitted for lumbar disk disease and status post posterior lumbar fusion, decompression and fixation of L4-5, L5, S1 with Dr. Lake. Plan: Left lower swelling f/u venous dopplers Post-op fever, afebrile today Afebrile over past 24 hours. Leukocytosis elevated at 17.3 yesterday CXR: patchy bibasal infiltrates Blood cultures (12/25/17) negative for 24 hours f/u urine cx monitor VS encourage incentive spirometer 10x an hour and frequent ambulation, PT/OT Abx discontinued Status post posterior lumbar fusion, decompression and fixation of L4-5, L5, S1 Post op day 4. Neurosurgery Dr. Lake consulted, help appreciated Oxycontin 20mg Q12 Oxycodone IR 5mg Q4 PRN Percocet 2 tab Q4 PRN Type 2 Diabetes Blood glucose levels 200s, above inpatient recommended target 140-180 4U before meals and no long acting for now started home metformin 500 mg BID Glyburide 2.5mg BID Hypoglycemic protocol Hyperlipidemia Crestor 5mg HS Zetia 10mg PO HS History of Asthma Albuterol Q4 PRN Singulair 10mg PO HS Claritin 10mg PO Daily Left big toe ingrown tail Apply bacitracin to area Xray of left foot ordered 12/25 Hypokalemia K repleted Continue to monitor Prophylaxis DVT: SCDs, Lovenox 40mg SC GI: not indicated Case discussed with Dr. Babs Melchor, PGY1 <Yuri Brice H - Last Filed: 12/27/17 08:31> Objective - Vital Signs/Intake and Output Vital Signs (last 24 hours): Temp Pulse Resp BP Pulse Ox 98.3 F 96 H 20 131/70 96 12/26/17 23:15 12/26/17 23:15 12/26/17 23:15 12/26/17 23:15 12/26/17 23:15 Intake and Output: 12/27/17 12/27/17 06:59 18:59 Intake Total Balance - Medications Medications: Current Medications Acetaminophen (Tylenol 325mg Tab) 650 mg PO Q6 PRN PRN Reason: Fever >100.4 F Last Admin: 12/25/17 10:10 Dose: 650 mg Albuterol/Ipratropium (Duoneb 3 Mg/0.5 Mg (3 Ml) Ud) 3 ml INH RQ4 PRN PRN Reason: Wheezing Bacitracin (Bacitracin) 0 gm TOP BID [facility] Last Admin: 12/26/17 17:19 Dose: 1 applic Bisacodyl (Dulcolax) 5 mg PO DAILY [facility] Last Admin: 12/26/17 10:27 Dose: 5 mg Dextrose (Dextrose 50% Inj) 0 ml IV STAT PRN; Protocol PRN Reason: Hypoglycemia Protocol Dextrose (Glutose 15) 0 gm PO ONCE PRN; Protocol PRN Reason: Hypoglycemia Protocol Docusate Sodium (Colace) 100 mg PO TID [facility] Last Admin: 12/26/17 17:04 Dose: 100 mg Ezetimibe (Zetia) 10 mg PO HS [facility] Last Admin: 12/26/17 21:44 Dose: 10 mg Enoxaparin Sodium (Lovenox) 40 mg SC DAILY [facility] Last Admin: 12/26/17 10:28 Dose: 40 mg Ferrous Sulfate (Feosol) 325 mg PO DAILY [facility] Last Admin: 12/26/17 10:29 Dose: 325 mg Glucagon (Glucagen Diagnostic Kit) 0 mg IM STAT PRN; Protocol PRN Reason: Hypoglycemia Protocol Glyburide (Micronase) 2.5 mg PO BID [facility] Last Admin: 12/26/17 17:04 Dose: 2.5 mg Dextrose (Dextrose 5% In Water 1000 Ml) 1,000 mls @ 0 mls/hr IV .Q0M PRN; Protocol PRN Reason: Hypoglycemia Protocol Insulin Human Regular (Novolin R) 0 unit [facility]; Protocol Last Admin: 12/27/17 08:21 Dose: 4 unit Insulin Human Regular (Novolin R) 3 unit SC [facility] Last Admin: 12/27/17 08:22 Dose: 3 units Loratadine (Claritin) 10 mg PO DAILY [facility] Last Admin: 12/26/17 10:28 Dose: 10 mg [facility] Last Admin: 12/26/17 08:08 Dose: 500 mg Montelukast Sodium (Singulair) 10 mg PO [facility] Last Admin: 12/26/17 21:41 Dose: 10 mg Oxycodone HCl (Oxycontin Extended Release Tab) 20 mg PO Q12 [facility] Last Admin: 12/26/17 21:41 Dose: 20 mg Oxycodone HCl (Oxycodone Immediate Release Tab) 5 mg PO Q4 PRN PRN Reason: Pain, severe (8-10) Last Admin: 12/26/17 15:56 Dose: 5 mg Oxycodone/Acetaminophen (Percocet 5/325 Mg Tab) 2 tab PO Q4H PRN PRN Reason: Pain, Mild (1-3) Stop: 12/28/17 11:14 Rosuvastatin Calcium (Crestor) 5 mg PO [facility] Last Admin: 12/26/17 21:41 Dose: 5 mg Simethicone (Mylicon Chew Tab) 80 mg PO QID [facility] Last Admin: 12/26/17 21:41 Dose: 80 mg - Labs Labs: 12/26/17 14:01 12/26/17 14:01 PT 10.9 SECONDS (9.7-12.2) 12/23/17 06:47 INR 1.0 12/23/17 06:47 APTT 29 SECONDS (21-34) 12/23/17 06:47 Attending/Attestation - Attestation I have personally seen and examined this patient.: Yes I have fully participated in the care of the patient.: Yes I have reviewed all pertinent clinical information, including history, physical exam and plan: Yes Notes (Text): 12/27/17 08:24 Medical attending: Patient was seen and examined by me. Agree with the above note by the resident The patient was feeling very uncomfortable she said since she had not had a bowel movement in 5 days now. The patient on exam is not acute pain, however does have abdominal fullness. We will DC the immediate release oxycontin, also hold the Feosol/iron. And also use Fleets enema x 1 now and also a portable abdominal film. Patient's family over speaker phone and the patient confirm that there is a history of constipation however not this severe as before. The patient does not want to eat do to the fullness. I explained to the patient we need to hold off on immediate release narcotic medication, but she still wants the longer acting oxycontin but will hold off on the immediate release Will add toradol IV for pain control. Yuri Brice
[2017-12-27] MEDS: (Novolin R) Insulin Human Regular 100 units/ml vial SC SCH ×8 (08:21→21:25)
--- NOTE | 2017-12-27 08:48 | CP.PCM.PN ---
Subjective - Date & Time of Evaluation Date of Evaluation: 12/27/17 Time of Evaluation: 08:48 - Subjective Subjective: no clinical neuro changes afebrile awaitind rehab bed Objective - Vital Signs/Intake and Output Vital Signs (last 24 hours): Temp Pulse Resp BP Pulse Ox 98.9 F 95 H 20 148/80 97 12/27/17 07:00 12/27/17 07:00 12/27/17 07:00 12/27/17 07:00 12/27/17 07:00 Intake and Output: 12/27/17 12/27/17 06:59 18:59 Intake Total Balance - Medications Medications: Current Medications Acetaminophen (Tylenol 325mg Tab) 650 mg PO Q6 PRN PRN Reason: Fever >100.4 F Last Admin: 12/25/17 10:10 Dose: 650 mg Albuterol/Ipratropium (Duoneb 3 Mg/0.5 Mg (3 Ml) Ud) 3 ml INH RQ4 PRN PRN Reason: Wheezing Bacitracin (Bacitracin) 0 gm TOP BID [facility] Last Admin: 12/26/17 17:19 Dose: 1 applic Bisacodyl (Dulcolax) 15 mg PO DAILY [facility] Dextrose (Dextrose 50% Inj) 0 ml IV STAT PRN; Protocol PRN Reason: Hypoglycemia Protocol Dextrose (Glutose 15) 0 gm PO ONCE PRN; Protocol PRN Reason: Hypoglycemia Protocol Docusate Sodium (Colace) 100 mg PO TID [facility] Last Admin: 12/26/17 17:04 Dose: 100 mg Enoxaparin Sodium (Lovenox) 40 mg SC DAILY [facility] Last Admin: 12/26/17 10:28 Dose: 40 mg Glucagon (Glucagen Diagnostic Kit) 0 mg IM STAT PRN; Protocol PRN Reason: Hypoglycemia Protocol Glyburide (Micronase) 2.5 mg PO BID [facility] Last Admin: 12/26/17 17:04 Dose: 2.5 mg Dextrose (Dextrose 5% In Water 1000 Ml) 1,000 mls @ 0 mls/hr IV .Q0M PRN; Protocol PRN Reason: Hypoglycemia Protocol Insulin Human Regular (Novolin R) [facility] unit [facility]; Protocol Last Admin: 12/27/17 08:21 Dose: 4 unit Insulin Human Regular (Novolin R) 3 unit SC [facility] Last Admin: 12/27/17 08:22 Dose: 3 units Ketorolac Tromethamine (Toradol) 30 mg IVP Q6 PRN PRN Reason: Pain, moderate (4-7) Loratadine (Claritin) 10 mg PO DAILY [facility] Last Admin: 12/26/17 10:28 Dose: 10 mg Metformin HCl (Glucophage) 500 mg PO BIDCC [facility] Last Admin: 12/27/17 08:26 Dose: 500 mg Montelukast Sodium (Singulair) 10 mg PO [facility] Last Admin: 12/26/17 21:41 Dose: 10 mg Oxycodone HCl (Oxycontin Extended Release Tab) 20 mg PO Q12 [facility] Last Admin: 12/26/17 21:41 Dose: 20 mg Rosuvastatin Calcium (Crestor) 5 mg PO [facility] Last Admin: 12/26/17 21:41 Dose: 5 mg Simethicone (Mylicon Chew Tab) 80 mg PO QID [facility] Last Admin: 12/26/17 21:41 Dose: 80 mg - Labs Labs: 12/26/17 14:01 12/26/17 14:01 PT 10.9 SECONDS (9.7-12.2) 12/23/17 06:47 INR 1.0 12/23/17 06:47 APTT 29 SECONDS (21-34) 12/23/17 06:47
--- NOTE | 2017-12-27 09:17 | RAD ---
Date of service: 12/27/2017 HISTORY: Patient severe constipation COMPARISON: None available. FINDINGS: BOWEL: There is gaseous distension of the hepatic flexure and transverse colon and distal ascending segment with gas seen in limited fashion at the majority of the ascending colon and the descending colon as well as the sigmoid segment. None is appreciable at the rectum. Distal large bowel obstruction is not excluded though large bowel ileus is possible. Clinically correlate further. No gross free intra peritoneal gas or suspicious intra-abdominal calcifications. No significant small bowel dilatation appreciated. BONES: Prior inferior lumbar spinal fusion including L5 and S1. OTHER FINDINGS: None. IMPRESSION: Possible large bowel ileus or, less likely, distal large bowel obstruction.
[2017-12-27] MEDS: Bisacodyl 5mg EC Tab PO SCH (09:49)
[2017-12-27] MEDS: Simethicone 80 mg Chewtab PO SCH ×4 (09:50→21:25)
[2017-12-27] MEDS: oxyCODONE 20 mg ER Tab (oxyCONTIN) PO SCH ×2 (09:50→21:24)
[2017-12-27] MEDS: Enoxaparin 40 mg Syringe SC SCH (09:51)
[2017-12-27] MEDS: Bacitracin Ointment 30 GM TUBE TOP SCH ×2 (09:52→17:12)
[2017-12-27 11:21] LABS: ALB/GLOB RATIO 1.1 (1.0-2.1); ALBUMIN 3.5 g/dL (3.5-5.0); ALT/SGPT 33 U/L (9-52); AST/SGOT 34 U/L (14-36); BLOOD UREA NITROGEN 8 mg/dL (7-17); CALCIUM 8.5 mg/dl (8.6-10.4); GFR NON-AFRICAN AMERICAN > 60
[2017-12-27 11:34] LABS: BASO # 0.1 K/uL (0.0-0.2); LYMPH # 2.1 K/uL (1.0-4.3); NEUT # 12.3 K/uL (1.8-7.0)
[2017-12-27 11:38] LABS: BASO % 0.8 % (0.0-2.0); EOS # 0.4 K/uL (0.0-0.7); EOS % 2.3 % (0.0-4.0); HEMOGLOBIN 11.5 g/dL (11.0-16.0); LYMPH % 13.5 % (20.0-40.0); MEAN CELL VOLUME 88.7 fL (81.0-99.0); MEAN CORPUSCULAR HEMOGLOBIN 30.8 pg (27.0-31.0); MEAN CORPUSCULAR HGB CONC 34.7 g/dL (33.0-37.0); MEAN PLATELET VOLUME 9.1 fL (7.2-11.7); MONO # 0.7 K/uL (0.0-0.8); MONO % 4.4 % (0.0-10.0); NRBC % 0.3 % (0.0-2.0); RBC 3.72 Mil/uL (3.80-5.20); RED CELL DISTRIBUTION WIDTH 13.5 % (11.5-14.5); WHITE BLOOD COUNT 15.6 K/uL (4.8-10.8)
--- NOTE | 2017-12-28 08:19 | CP.PCM.PN ---
<Yuri Melchor - Last Filed: 12/28/17 19:01> Subjective - Date & Time of Evaluation Date of Evaluation: 12/28/17 Time of Evaluation: 08:19 - Subjective Subjective: Progress note for Hospitalist service Patient seen and examined at bedside. She states she was able to have 3 bowel movements yesterday after she had an enema. She denies fevers, chills, chest pain, shortness of breath, palpitations, abdominal pain, nausea, vomiting, diarrhea, leg pain. She admits she feels her left lower extremity feels slight swollen. She denies pain in her legs. She is eating without difficulty and voiding urine without difficulty. Objective - Vital Signs/Intake and Output Vital Signs (last 24 hours): Temp Pulse Resp BP Pulse Ox 98.0 F 88 20 181/100 H 98 12/28/17 07:00 12/28/17 07:00 12/28/17 07:00 12/28/17 07:00 12/28/17 07:00 Intake and Output: 12/28/17 12/28/17 06:59 18:59 Intake Total 350 Balance 350 - Medications Medications: Current Medications Acetaminophen (Tylenol 325mg Tab) 650 mg PO Q6 PRN PRN Reason: Fever >100.4 F Last Admin: 12/25/17 10:10 Dose: 650 mg Albuterol/Ipratropium (Duoneb 3 Mg/0.5 Mg (3 Ml) Ud) 3 ml INH RQ4 PRN PRN Reason: Wheezing Bacitracin (Bacitracin) 0 gm TOP BID [facility] Last Admin: 12/27/17 17:12 Dose: 1 applic Bisacodyl (Dulcolax) 15 mg PO DAILY [facility] Last Admin: 12/27/17 09:49 Dose: 15 mg Dextrose (Dextrose 50% Inj) 0 ml IV STAT PRN; Protocol PRN Reason: Hypoglycemia Protocol Dextrose (Glutose 15) 0 gm PO ONCE PRN; Protocol PRN Reason: Hypoglycemia Protocol Docusate Sodium (Colace) 100 mg PO TID [facility] Last Admin: 12/27/17 17:09 Dose: 100 mg Enoxaparin Sodium (Lovenox) 40 mg SC DAILY [facility] Last Admin: 12/27/17 09:51 Dose: 40 mg Glucagon (Glucagen Diagnostic Kit) 0 mg IM STAT PRN; Protocol PRN Reason: Hypoglycemia Protocol Glyburide (Micronase) 2.5 mg PO BID [facility] Last Admin: 12/27/17 17:09 Dose: 2.5 mg Dextrose (Dextrose 5% In Water 1000 Ml) 1,000 mls @ 0 mls/hr IV .Q0M PRN; Prot ocol PRN Reason: Hypoglycemia Protocol Insulin Human Regular (Novolin R) 0 unit SC [facility]; Protocol Last Admin: 12/27/17 21:18 Dose: Not Given Insulin Human Regular (Novolin R) 3 unit SC [facility] Last Admin: 12/27/17 21:25 Dose: 3 units Ketorolac Tromethamine (Toradol) 30 mg IVP Q6 PRN PRN Reason: Pain, moderate (4-7) Loratadine (Claritin) 10 mg PO DAILY [facility] Last Admin: 12/27/17 09:50 Dose: 10 mg [facility]) [facility] Last Admin: 12/27/17 17:09 Dose: 500 mg Montelukast Sodium (Singulair) 10 mg PO [facility] Last Admin: 12/27/17 21:24 Dose: 10 mg Oxycodone HCl (Oxycontin Extended Release Tab) 20 mg PO Q12 [facility] Last Admin: 12/27/17 21:24 Dose: 20 mg Rosuvastatin Calcium (Crestor) 5 mg PO [facility] Last Admin: 12/27/17 21:24 Dose: 5 mg Simethicone (Mylicon Chew Tab) 80 mg PO QID [facility] Last Admin: 12/27/17 21:25 Dose: 80 mg - Labs Labs: 12/27/17 10:49 12/27/17 10:49 PT 10.9 SECONDS (9.7-12.2) 12/23/17 06:47 INR 1.0 12/23/17 06:47 APTT 29 SECONDS (21-34) 12/23/17 06:47 - Constitutional Appears: Well, No Acute Distress, Other (Sitting up in chair out of bed. ) - Head Exam Head Exam: ATRAUMATIC, NORMOCEPHALIC - Eye Exam Eye Exam: EOMI, PERRL - ENT Exam ENT Exam: Mucous Membranes Moist - Neck Exam Neck Exam: Full ROM. absent: Tenderness - Respiratory Exam Respiratory Exam: Clear to Ausculation Bilateral. absent: Rales, Rhonchi, Wheezes, Respiratory Distress, Stridor - Cardiovascular Exam Cardiovascular Exam: REGULAR RHYTHM, +S1, +S2. absent: Gallop, Rubs, Murmur - GI/Abdominal Exam GI & Abdominal Exam: Soft, Normal Bowel Sounds. absent: Distended, Firm, Guarding, Rigid, Tenderness, Organomegaly - Extremities Exam Extremities Exam: Normal Capillary Refill, Pedal Edema. absent: Calf Tenderness, Joint Swelling Additional comments: Mild bilateral lower extremity edema, L>R , no calf tenderness, no erythema, no skin changes. - Back Exam Back Exam: absent: CVA tenderness (L), CVA tenderness (R) Additional comments: Bandage over lumbar area - Neurological Exam Neurological Exam: Alert, Awake, Oriented x3 - Psychiatric Exam Psychiatric exam: Normal Affect, Normal Mood - Skin Skin Exam: Dry, Intact, Warm Assessment and Plan - Assessment and Plan (Free Text) Plan: Assessment 52 year old female with history of Type 2 DM, severe lumbar disk disease admitted for lumbar disk disease and status post posterior lumbar fusion, decompression and fixation of L4-5, L5, S1 with Dr. aLke. Plan: Left lower swelling Bilateral Venous dopplers negative continue to monitor Post-op fever, afebrile today Afebrile White count 12.8 CXR: patchy bibasal infiltrates Blood cultures (12/25/17) negative for 72 hours urine cx (12/25/17) multiple species likely contamination monitor VS encourage incentive spirometer 10x an hour and frequent ambulation, PT/OT Abx discontinued Status post posterior lumbar fusion, decompression and fixation of L4-5, L5, S1 Post op day 5. Neurosurgery Dr. Lake consulted, help appreciated Toradol 30mg Q6 PRN Oxycontin 20mg Q12 Simethicone 80mg QID Type 2 Diabetes Blood glucose levels 200s, above inpatient recommended target 140-180 3U before meals and no long acting for now started home metformin 500 mg BID Glyburide 2.5mg BID Hypoglycemic protocol Hyperlipidemia Crestor 5mg HS Zetia 10mg PO HS History of Asthma Albuterol Q4 PRN Singulair 10mg PO HS Claritin 10mg PO Daily Left big toe ingrown tail Apply bacitracin to area Xray of left foot ordered 12/25 Hypokalemia K repleted Continue to monitor Prophylaxis DVT: Lovenox 40mg SC GI: not indicated Dispo: Pending placement for [facility] in [place]. Case discussed with Dr. Amber Melchor, PGY1 <Pranav Clark - Last Filed: 12/29/17 09:11> Objective - Vital Signs/Intake and Output Vital Signs (last 24 hours): Temp Pulse Resp BP Pulse Ox 98.1 F 80 20 163/89 H 98 12/29/17 07:00 12/29/17 07:00 12/29/17 07:00 12/29/17 07:00 12/29/17 07:00 - Medications Medications: Current Medications Acetaminophen (Tylenol 325mg Tab) 650 mg PO Q6 PRN PRN Reason: Fever >100.4 F Last Admin: 12/25/17 10:10 Dose: 650 mg Albuterol/Ipratropium (Duoneb 3 Mg/0.5 Mg (3 Ml) Ud) 3 ml INH RQ4 PRN PRN Reason: Wheezing Bacitracin (Bacitracin) 0 gm TOP BID [facility] Last Admin: 12/28/17 17:28 Dose: 1 applic Bisacodyl (Dulcolax) 15 mg PO DAILY [facility] Last Admin: 12/28/17 10:13 Dose: 15 mg Dextrose (Dextrose 50% Inj) 0 ml IV STAT PRN; Protocol PRN Reason: Hypoglycemia Protocol Dextrose (Glutose 15) 0 gm PO ONCE PRN; Protocol PRN Reason: Hypoglycemia Protocol Docusate Sodium (Colace) 100 mg PO TID [facility] Last Admin: 12/28/17 17:27 Dose: 100 mg Enoxaparin Sodium (Lovenox) 40 mg SC DAILY [facility] Last Admin: 12/28/17 10:13 Dose: 40 mg Glucagon (Glucagen Diagnostic Kit) 0 mg IM STAT PRN; Protocol PRN Reason: Hypoglycemia Protocol Glyburide (Micronase) 2.5 mg PO BID [facility] Last Admin: 12/28/17 17:27 Dose: 2.5 mg Dextrose (Dextrose 5% In Water 1000 Ml) 1,000 mls @ 0 mls/hr IV .Q0M PRN; Protocol PRN Reason: Hypoglycemia Protocol Insulin Human Regular (Novolin R) 0 unit SC [facility]; Protocol Last Admin: 12/28/17 22:17 Dose: Not Given Insulin Human Regular (Novolin R) 3 unit SC [facility] Last Admin: 12/28/17 22:12 Dose: 3 units Ketorolac Tromethamine (Toradol) 10 mg PO Q6 PRN PRN Reason: Pain, moderate (4-7) Last Admin: 12/28/17 23:06 Dose: 10 mg Loratadine (Claritin) 10 mg PO DAILY [facility] Last Admin: 12/28/17 10:13 Dose: 10 mg Metformin HCl (Glucophage) 500 mg PO BIDCC [facility] Last Admin: 12/29/17 08:11 Dose: 500 mg Montelukast Sodium (Singulair) 10 mg PO HS [facility] Last Admin: 12/28/17 22:11 Dose: 10 mg Oxycodone HCl (Oxycontin Extended Release Tab) 20 mg PO Q12 [facility] Last Admin: 12/28/17 22:07 Dose: Not Given Potassium Chloride (K-Dur 20 Meq Er Tab) 20 meq PO Q2H [facility] Stop: 12/29/17 09:46 Last Admin: 12/29/17 08:11 Dose: 20 meq Rosuvastatin Calcium (Crestor) 5 mg PO HS [facility] Last Admin: 12/28/17 22:11 Dose: 5 mg Simethicone (Mylicon Chew Tab) 80 mg PO QID [facility] Last Admin: 12/28/17 22:11 Dose: 80 mg - Labs Labs: 12/29/17 06:31 12/29/17 06:27 PT 10.9 SECONDS (9.7-12.2) 12/23/17 06:47 INR 1.0 12/23/17 06:47 APTT 29 SECONDS (21-34) 12/23/17 06:47 Attending/Attestation - Attestation I have personally seen and examined this patient.: Yes I have fully participated in the care of the patient.: Yes I have reviewed all pertinent clinical information, including history, physical exam and plan: Yes Notes (Text): seen and examined,patient has mild leg edema likely dependent edema. No calf tenderness,leg is not warm,nontender on examination. follow doppler d/w CW. Pending rehab discharge I agree with the resident's notes
[2017-12-28] MEDS: (Novolin R) Insulin Human Regular 100 units/ml vial SC SCH ×8 (08:20→22:17)
--- NOTE | 2017-12-28 09:49 | CP.PCM.PN ---
Subjective - Date & Time of Evaluation Date of Evaluation: 12/28/17 Time of Evaluation: 09:49 - Subjective Subjective: stable, awaitaing rehab placement Objective - Vital Signs/Intake and Output Vital Signs (last 24 hours): Temp Pulse Resp BP Pulse Ox 98.0 F 88 20 181/100 H 98 12/28/17 07:00 12/28/17 07:00 12/28/17 07:00 12/28/17 07:00 12/28/17 07:00 Intake and Output: 12/28/17 12/28/17 06:59 18:59 Intake Total 350 Balance 350 - Medications Medications: Current Medications Acetaminophen (Tylenol 325mg Tab) 650 mg PO Q6 PRN PRN Reason: Fever >100.4 F Last Admin: 12/25/17 10:10 Dose: 650 mg Albuterol/Ipratropium (Duoneb 3 Mg/0.5 Mg (3 Ml) Ud) 3 ml INH RQ4 PRN PRN Reason: Wheezing Bacitracin (Bacitracin) 0 gm TOP BID [facility] Last Admin: 12/27/17 17:12 Dose: 1 applic Bisacodyl (Dulcolax) 15 mg PO DAILY [facility] Last Admin: 12/27/17 09:49 Dose: 15 mg Dextrose (Dextrose 50% Inj) 0 ml IV STAT PRN; Protocol PRN Reason: Hypoglycemia Protocol Dextrose (Glutose 15) 0 gm PO ONCE PRN; Protocol PRN Reason: Hypoglycemia Protocol Docusate Sodium (Colace) 100 mg PO TID [facility] Last Admin: 12/27/17 17:09 Dose: 100 mg Enoxaparin Sodium (Lovenox) 40 mg SC DAILY [facility] Last Admin: 12/27/17 09:51 Dose: 40 mg Glucagon (Glucagen Diagnostic Kit) 0 mg IM STAT PRN; Protocol PRN Reason: Hypoglycemia Protocol Glyburide (Micronase) 2.5 mg PO BID [facility] Last Admin: 12/27/17 17:09 Dose: 2.5 mg Dextrose (Dextrose 5% In Water 1000 Ml) 1,000 mls @ 0 mls/hr IV .Q0M PRN; Protocol PRN Reason: Hypoglycemia Protocol Insulin Human Regular (Novolin R) 0 unit SC ACHS [facility]; Protocol Last Admin: 12/28/17 08:20 Dose: 2 unit Insulin Human Regular (Novolin R) 3 unit SC ACHS [facility] Last Admin: 12/28/17 08:21 Dose: 3 units Ketorolac Tromethamine (Toradol) 30 mg IVP Q6 PRN PRN Reason: Pain, moderate (4-7) Last Admin: 12/28/17 08:24 Dose: 30 mg Loratadine (Claritin) 10 mg PO DAILY [facility] Last Admin: 12/27/17 09:50 Dose: 10 mg Metformin HCl (Glucophage) 500 mg PO BIDCC [facility] Last Admin: 12/28/17 08:21 Dose: 500 mg Montelukast Sodium (Singulair) 10 mg PO HS [facility] Last Admin: 12/27/17 21:24 Dose: 10 mg Oxycodone HCl (Oxycontin Extended Release Tab) 20 mg PO Q12 [facility] Last Admin: 12/27/17 21:24 Dose: 20 mg Rosuvastatin Calcium (Crestor) 5 mg PO HS [facility] Last Admin: 12/27/17 21:24 Dose: 5 mg Simethicone (Mylicon Chew Tab) 80 mg PO QID [facility] Last Admin: 12/27/17 21:25 Dose: 80 mg - Labs Labs: 12/27/17 10:49 12/27/17 10:49 PT 10.9 SECONDS (9.7-12.2) 12/23/17 06:47 INR 1.0 12/23/17 06:47 APTT 29 SECONDS (21-34) 12/23/17 06:47
[2017-12-28] MEDS: oxyCODONE 20 mg ER Tab (oxyCONTIN) PO SCH ×2 (10:12→22:07)
[2017-12-28] MEDS: Bacitracin Ointment 30 GM TUBE TOP SCH ×2 (10:12→17:28)
[2017-12-28] MEDS: Enoxaparin 40 mg Syringe SC SCH (10:13)
[2017-12-28] MEDS: Simethicone 80 mg Chewtab PO SCH ×4 (10:13→22:11)
[2017-12-28] MEDS: Bisacodyl 5mg EC Tab PO SCH (10:13)
[2017-12-28 13:09] LABS: BASO # 0.1 K/uL (0.0-0.2); BASO % 0.9 % (0.0-2.0); EOS # 0.5 K/uL (0.0-0.7); EOS % 3.6 % (0.0-4.0); HEMOGLOBIN 10.4 g/dL (11.0-16.0); LYMPH # 2.7 K/uL (1.0-4.3); LYMPH % 21.2 % (20.0-40.0); MEAN CELL VOLUME 88.6 fL (81.0-99.0); MEAN PLATELET VOLUME 8.3 fL (7.2-11.7); MONO # 0.8 K/uL (0.0-0.8); MONO % 6.3 % (0.0-10.0); NEUT # 8.7 K/uL (1.8-7.0); NRBC % 0.1 % (0.0-2.0); RBC 3.37 Mil/uL (3.80-5.20); RED CELL DISTRIBUTION WIDTH 13.4 % (11.5-14.5); WHITE BLOOD COUNT 12.8 K/uL (4.8-10.8)
[2017-12-28 13:24] LABS: ALB/GLOB RATIO 1.2 (1.0-2.1); ALBUMIN 3.6 g/dL (3.5-5.0); ALT/SGPT 35 U/L (9-52); AST/SGOT 38 U/L (14-36); BLOOD UREA NITROGEN 8 mg/dL (7-17); CALCIUM 8.5 mg/dl (8.6-10.4); GFR NON-AFRICAN AMERICAN > 60
[2017-12-29 06:36] LABS: BASO % 0.5 % (0.0-2.0); EOS # 0.4 K/uL (0.0-0.7); EOS % 3.6 % (0.0-4.0); HEMOGLOBIN 9.6 g/dL (11.0-16.0); LYMPH % 18.9 % (20.0-40.0); MEAN CELL VOLUME 87.8 fL (81.0-99.0); MEAN CORPUSCULAR HEMOGLOBIN 30.9 pg (27.0-31.0); MEAN CORPUSCULAR HGB CONC 35.2 g/dL (33.0-37.0); MEAN PLATELET VOLUME 8.1 fL (7.2-11.7); MONO # 0.7 K/uL (0.0-0.8); MONO % 6.4 % (0.0-10.0); NEUT # 7.3 K/uL (1.8-7.0); NEUT % 70.6 % (50.0-75.0); NRBC % 0.1 % (0.0-2.0); RBC 3.09 Mil/uL (3.80-5.20); RED CELL DISTRIBUTION WIDTH 13.2 % (11.5-14.5); WHITE BLOOD COUNT 10.3 K/uL (4.8-10.8)
[2017-12-29 07:07] LABS: ALB/GLOB RATIO 1.1 (1.0-2.1); ALBUMIN 3.2 g/dL (3.5-5.0); ALT/SGPT 39 U/L (9-52); AST/SGOT 31 U/L (14-36); BLOOD UREA NITROGEN 8 mg/dL (7-17); CALCIUM 8.3 mg/dl (8.6-10.4); GFR NON-AFRICAN AMERICAN > 60
[2017-12-29] MEDS: (Novolin R) Insulin Human Regular 100 units/ml vial SC SCH ×8 (07:35→23:39)
[2017-12-29] MEDS: Potassium Chloride 20 mEq ER Tab PO SCH ×2 (08:11→09:48)
--- NOTE | 2017-12-29 09:31 | CP.PCM.PN ---
Subjective - Date & Time of Evaluation Date of Evaluation: 12/29/17 Time of Evaluation: 09:30 - Subjective Subjective: SPINE - POD #6 Pt amb w walker to [facility]. Awaiting auth for [facility] in [place]. No new complaints. VSS. Afebrile. Neuro grossly intact Plan: Transfer when able Objective - Vital Signs/Intake and Output Vital Signs (last 24 hours): Temp Pulse Resp BP Pulse Ox 98.1 F 80 20 163/89 H 98 12/29/17 07:00 12/29/17 07:00 12/29/17 07:00 12/29/17 07:00 12/29/17 07:00 - Medications Medications: Current Medications Acetaminophen (Tylenol 325mg Tab) 650 mg PO Q6 PRN PRN Reason: Fever >100.4 F Last Admin: 12/25/17 10:10 Dose: 650 mg Albuterol/Ipratropium (Duoneb 3 Mg/0.5 Mg (3 Ml) Ud) 3 ml INH RQ4 PRN PRN Reason: Wheezing Bacitracin (Bacitracin) 0 gm TOP BID [facility] Last Admin: 12/28/17 17:28 Dose: 1 applic Bisacodyl (Dulcolax) 15 mg PO DAILY [facility] Last Admin: 12/28/17 10:13 Dose: 15 mg Dextrose (Dextrose 50% Inj) 0 ml IV STAT PRN; Protocol PRN Reason: Hypoglycemia Protocol Dextrose (Glutose 15) 0 gm PO ONCE PRN; Protocol PRN Reason: Hypoglycemia Protocol Docusate Sodium (Colace) 100 mg PO TID [facility] Last Admin: 12/28/17 17:27 Dose: 100 mg Enoxaparin Sodium (Lovenox) 40 mg SC DAILY [facility] Last Admin: 12/28/17 10:13 Dose: 40 mg Glucagon (Glucagen Diagnostic Kit) 0 mg IM STAT PRN; Protocol PRN Reason: Hypoglycemia Protocol Glyburide (Micronase) 2.5 mg PO BID [facility] Last Admin: 12/28/17 17:27 Dose: 2.5 mg Dextrose (Dextrose 5% In Water 1000 Ml) 1,000 mls @ 0 mls/hr IV .Q0M PRN; Protocol PRN Reason: Hypoglycemia Protocol Insulin Human Regular (Novolin R) [address] [facility]; Protocol Last Admin: 12/28/17 22:17 Dose: Not Given Insulin Human Regular (Novolin R) 3 unit SC ACHS [facility] Last Admin: 12/28/17 22:12 Dose: 3 units Ketorolac Tromethamine (Toradol) 10 mg PO Q6 PRN PRN Reason: Pain, moderate (4-7) Last Admin: 12/28/17 23:06 Dose: 10 mg Loratadine (Claritin) 10 mg PO DAILY [facility] Last Admin: 12/28/17 10:13 Dose: 10 mg Metformin HCl (Glucophage) 500 mg PO BIDCC [facility] Last Admin: 12/29/17 08:11 Dose: 500 mg Montelukast Sodium (Singulair) 10 mg PO HS [facility] Last Admin: 12/28/17 22:11 Dose: 10 mg Oxycodone HCl (Oxycontin Extended Release Tab) 20 mg PO Q12 [facility] Last Admin: 12/28/17 22:07 Dose: Not Given Potassium Chloride (K-Dur 20 Meq Er Tab) 20 meq PO Q2H [facility] Stop: 12/29/17 09:46 Last Admin: 12/29/17 08:11 Dose: 20 meq Rosuvastatin Calcium (Crestor) 5 mg PO HS [facility] Last Admin: 12/28/17 22:11 Dose: 5 mg Simethicone (Mylicon Chew Tab) 80 mg PO QID [facility] Last Admin: 12/28/17 22:11 Dose: 80 mg - Labs Labs: 12/29/17 06:31 12/29/17 06:27 PT 10.9 SECONDS (9.7-12.2) 12/23/17 06:47 INR 1.0 12/23/17 06:47 APTT 29 SECONDS (21-34) 12/23/17 06:47
[2017-12-29] MEDS: Bisacodyl 5mg EC Tab PO SCH (09:48)
[2017-12-29] MEDS: Simethicone 80 mg Chewtab PO SCH ×4 (09:48→21:50)
[2017-12-29] MEDS: Enoxaparin 40 mg Syringe SC SCH (09:49)
[2017-12-29] MEDS: oxyCODONE 20 mg ER Tab (oxyCONTIN) PO SCH ×2 (09:50→23:39)
[2017-12-29] MEDS: Bacitracin Ointment 30 GM TUBE TOP SCH ×2 (09:55→18:00)
--- NOTE | 2017-12-29 15:36 | CP.PCM.PN ---
<CynthiaMeghnaBecka Y - Last Filed: 12/29/17 15:34> Subjective - Date & Time of Evaluation Date of Evaluation: 12/29/17 Time of Evaluation: 07:15 - Subjective Subjective: PGY-1 Medicine Progress Note for Dr. Clark Patient was seen and examined today OOB in no acute distress. Patient has been having family bring in soft diet per nursing. She has also been refusing IV medications, preferring PO meds instead. She is eager to be discharged and start PT and rehab. Denies chest pain, shortness of breath, abdominal pain, nausea, vo miting, constipation, diarrhea. Objective - Vital Signs/Intake and Output Vital Signs (last 24 hours): Temp Pulse Resp BP Pulse Ox 98.1 F 80 20 163/89 H 98 12/29/17 07:00 12/29/17 07:00 12/29/17 07:00 12/29/17 07:00 12/29/17 07:00 Intake and Output: 12/29/17 12/29/17 06:59 18:59 Intake Total 360 Balance 360 - Medications Medications: Current Medications Acetaminophen (Tylenol 325mg Tab) 650 mg PO Q6 PRN PRN Reason: Fever >100.4 F Last Admin: 12/25/17 10:10 Dose: 650 mg Albuterol/Ipratropium (Duoneb 3 Mg/0.5 Mg (3 Ml) Ud) 3 ml INH RQ4 PRN PRN Reason: Wheezing Bacitracin (Bacitracin) 0 gm TOP BID [facility] Last Admin: 12/29/17 09:55 Dose: 1 applic Bisacodyl (Dulcolax) 15 mg PO DAILY [facility] Last Admin: 12/29/17 09:48 Dose: 15 mg Dextrose (Dextrose 50% Inj) 0 ml IV STAT PRN; Protocol PRN Reason: Hypoglycemia Protocol Dextrose (Glutose 15) 0 gm PO ONCE PRN; Protocol PRN Reason: Hypoglycemia Protocol Docusate Sodium (Colace) 100 mg PO TID [facility] Last Admin: 12/29/17 13:31 Dose: 100 mg Enoxaparin Sodium (Lovenox) 40 mg SC DAILY [facility] Last Admin: 12/29/17 09:49 Dose: 40 mg Glucagon (Glucagen Diagnostic Kit) 0 mg IM STAT PRN; Protocol PRN Reason: Hypoglycemia Protocol Glyburide (Micronase) 2.5 mg PO BID [facility] Last Admin: 12/29/17 09:49 Dose: 2.5 mg Dextrose (Dextrose 5% In Water 1000 Ml) 1,000 mls @ 0 mls/hr IV .Q0M PRN; Protocol PRN Reason: Hypoglycemia Protocol Insulin Human Regular (Novolin R) 0 unit SC [facility]; Protocol Last Admin: 12/29/17 11:36 Dose: 2 unit Insulin Human Regular (Novolin R) 3 unit SC [facility] Last Admin: 12/29/17 11:37 Dose: 3 units Ketorolac Tromethamine (Toradol) 10 mg PO Q6 PRN PRN Reason: Pain, moderate (4-7) Last Admin: 12/29/17 09:57 Dose: 10 mg Loratadine (Claritin) 10 mg PO DAILY [facility] Last Admin: 12/29/17 09:49 Dose: 10 mg [facility] Last Admin: 12/29/17 08:11 Dose: 500 mg Montelukast Sodium (Singulair) 10 mg PO [facility] Last Admin: 12/28/17 22:11 Dose: 10 mg Oxycodone HCl (Oxycontin Extended Release Tab) 20 mg PO Q12 [facility] Last Admin: 12/29/17 09:50 Dose: Not Given Rosuvastatin Calcium (Crestor) 5 mg PO [facility] Last Admin: 12/28/17 22:11 Dose: 5 mg Simethicone (Mylicon Chew Tab) 80 mg PO QID [facility] Last Admin: 12/29/17 13:31 Dose: 80 mg - Labs Labs: 12/29/17 06:31 12/29/17 06:27 PT 10.9 SECONDS (9.7-12.2) 12/23/17 06:47 INR 1.0 12/23/17 06:47 APTT 29 SECONDS (21-34) 12/23/17 06:47 - Constitutional Appears: Well, No Acute Distress - Head Exam Head Exam: ATRAUMATIC, NORMOCEPHALIC - Eye Exam Eye Exam: EOMI, PERRL - ENT Exam ENT Exam: Mucous Membranes Moist - Neck Exam Neck Exam: Full ROM - Respiratory Exam Respiratory Exam: Clear to Ausculation Bilateral. absent: Rales, Rhonchi, Wheezes - Cardiovascular Exam Cardiovascular Exam: REGULAR RHYTHM, +S1, +S2. absent: Gallop, Rubs, Murmur - GI/Abdominal Exam GI & Abdominal Exam: Soft, Normal Bowel Sounds. absent: Firm, Guarding, Rigid, Tenderness - Extremities Exam Extremities Exam: Normal Capillary Refill. absent: Calf Tenderness Additional comments: mild to negligible bilateral lower extremity edema - Back Exam Additional comments: dressings over lumbar area, c/d/i - Neurological Exam Neurological Exam: Alert, Awake, Oriented x3 - Psychiatric Exam Psychiatric exam: Normal Affect, Normal Mood - Skin Skin Exam: Dry, Normal Color, Warm Assessment and Plan - Assessment and Plan (Free Text) Assessment: 52 year old female with history of Type 2 DM, severe lumbar disk disease admitted for lumbar disk disease and status post posterior lumbar fusion, decompression and fixation of L4-5, L5, S1 with Dr. Lake POD#6. Plan: Left lower swelling Bilateral Venous dopplers negative continue to monitor Post-op fever, afebrile today Afebrile White count downtrending, 10.3 today CXR: patchy bibasal infiltrates Blood cultures (12/25/17) negative for 72 hours urine cx (12/25/17) multiple species likely contamination monitor VS encourage incentive spirometer 10x an hour and frequent ambulation, PT/OT Abx discontinued Status post posterior lumbar fusion, decompression and fixation of L4-5, L5, S1 Post op day 6. Neurosurgery Dr. Lake consulted, help appreciated Toradol 30mg Q6 PRN Oxycontin 20mg Q12 Simethicone 80mg QID Type 2 Diabetes Blood glucose levels 200s, above inpatient recommended target 140-180 3U before meals and no long acting for now started home metformin 500 mg BID Glyburide 2.5mg BID Hypoglycemic protocol Hyperlipidemia Crestor 5mg HS Zetia 10mg PO HS History of Asthma Albuterol Q4 PRN Singulair 10mg PO HS Claritin 10mg PO Daily Left big toe ingrown tail Apply bacitracin to area Xray of left foot ordered 12/25 Hypokalemia K repleted Continue to monitor Prophylaxis DVT: Lovenox 40mg SC GI: not indicated Diet: HHD soft Dispo: Pending placement for [facility] in [place]. Case discussed with Dr. Amber Marie PGY-1 <Pranav Clark - Last Filed: 12/29/17 17:14> Objective - Vital Signs/Intake and Output Vital Signs (last 24 hours): Temp Pulse Resp BP Pulse Ox 98.5 F 83 20 154/83 H 100 12/29/17 15:00 12/29/17 15:00 12/29/17 15:00 12/29/17 15:00 12/29/17 15:00 Intake and Output: 12/29/17 12/29/17 06:59 18:59 Intake Total 360 Balance 360 - Medications Medications: Current Medications Acetaminophen (Tylenol 325mg Tab) 650 mg PO Q6 PRN PRN Reason: Fever >100.4 F Last Admin: 12/25/17 10:10 Dose: 650 mg Albuterol/Ipratropium (Duoneb 3 Mg/0.5 Mg (3 Ml) Ud) 3 ml INH RQ4 PRN PRN Reason: Wheezing Bacitracin (Bacitracin) 0 gm TOP BID [facility] Last Admin: 12/29/17 09:55 Dose: 1 applic Bisacodyl (Dulcolax) 15 mg PO DAILY [facility] Last Admin: 12/29/17 09:48 Dose: 15 mg Dextrose (Dextrose 50% Inj) 0 ml IV STAT PRN; Protocol PRN Reason: Hypoglycemia Protocol Dextrose (Glutose 15) 0 gm PO ONCE PRN; Protocol PRN Reason: Hypoglycemia Protocol Docusate Sodium (Colace) 100 mg PO TID [facility] Last Admin: 12/29/17 13:31 Dose: 100 mg Enoxaparin Sodium (Lovenox) 40 mg SC DAILY [facility] Last Admin: 12/29/17 09:49 Dose: 40 mg Glucagon (Glucagen Diagnostic Kit) 0 mg IM STAT PRN; Protocol PRN Reason: Hypoglycemia Protocol Glyburide (Micronase) 2.5 mg PO BID [facility] Last Admin: 12/29/17 09:49 Dose: 2.5 mg Dextrose (Dextrose 5% In Water 1000 Ml) 1,000 mls @ 0 mls/hr IV .Q0M PRN; Protocol PRN Reason: Hypoglycemia Protocol Insulin Human Regular (Novolin R) 0 unit SC [facility]; Protocol Last Admin: 12/29/17 11:36 Dose: 2 unit Insulin Human Regular (Novolin R) 3 unit SC [facility] Last Admin: 12/29/17 11:37 Dose: 3 units Ketorolac Tromethamine (Toradol) 10 mg PO Q6 PRN PRN Reason: Pain, moderate (4-7) Last Admin: 12/29/17 09:57 Dose: 10 mg Loratadine (Claritin) 10 mg PO DAILY [facility] Last Admin: 12/29/17 09:49 Dose: 10 mg Metformin HCl (Glucophage) 500 mg PO BIDCC [facility] Last Admin: 12/29/17 08:11 Dose: 500 mg Montelukast Sodium (Singulair) 10 mg PO [facility] Last Admin: 12/28/17 22:11 Dose: 10 mg Oxycodone HCl (Oxycontin Extended Release Tab) 20 mg PO Q12 [facility] Last Admin: 12/29/17 09:50 Dose: Not Given Rosuvastatin Calcium (Crestor) 5 mg PO [facility] Last Admin: 12/28/17 22:11 Dose: 5 mg Simethicone (Mylicon Chew Tab) 80 mg PO QID [facility] Last Admin: 12/29/17 13:31 Dose: 80 mg - Labs Labs: 12/29/17 06:31 12/29/17 06:27 PT 10.9 SECONDS (9.7-12.2) 12/23/17 06:47 INR 1.0 12/23/17 06:47 APTT 29 SECONDS (21-34) 12/23/17 06:47 Attending/Attestation - Attestation I have personally seen and examined this patient.: Yes I have fully participated in the care of the patient.: Yes I have reviewed all pertinent clinical information, including history, physical exam and plan: Yes Notes (Text): pending discharge to rehab d/w SW I agree with the resident's documentation
[2017-12-29] MEDS ORDERED: Potassium Chloride 20 mEq ER Tab PO ONE (16:00)
[2017-12-30] MEDS: (Novolin R) Insulin Human Regular 100 units/ml vial SC SCH ×4 (08:23→13:02)
--- NOTE | 2017-12-30 09:13 | CP.PCM.PN ---
Subjective - Date & Time of Evaluation Date of Evaluation: 12/30/17 Time of Evaluation: 09:13 Objective - Vital Signs/Intake and Output Vital Signs (last 24 hours): Temp Pulse Resp BP Pulse Ox 98.1 F 75 18 158/84 H 98 12/30/17 07:20 12/30/17 07:20 12/30/17 07:20 12/30/17 07:20 12/30/17 07:20 - Medications Medications: Current Medications Acetaminophen (Tylenol 325mg Tab) 650 mg PO Q6 PRN PRN Reason: Fever >100.4 F Last Admin: 12/25/17 10:10 Dose: 650 mg Albuterol/Ipratropium (Duoneb 3 Mg/0.5 Mg (3 Ml) Ud) 3 ml INH RQ4 PRN PRN Reason: Wheezing Bacitracin (Bacitracin) 0 gm TOP BID [facility] Last Admin: 12/29/17 18:00 Dose: 1 applic Bisacodyl (Dulcolax) 15 mg PO DAILY [facility] Last Admin: 12/29/17 09:48 Dose: 15 mg Dextrose (Dextrose 50% Inj) 0 ml IV STAT PRN; Protocol PRN Reason: Hypoglycemia Protocol Dextrose (Glutose 15) 0 gm PO ONCE PRN; Protocol PRN Reason: Hypoglycemia Protocol Docusate Sodium (Colace) 100 mg PO TID [facility] Last Admin: 12/29/17 17:29 Dose: 100 mg Enoxaparin Sodium (Lovenox) 40 mg SC DAILY [facility] Last Admin: 12/29/17 09:49 Dose: 40 mg Glucagon (Glucagen Diagnostic Kit) 0 mg IM STAT PRN; Protocol PRN Reason: Hypoglycemia Protocol Glyburide (Micronase) 2.5 mg PO BID [facility] Last Admin: 12/29/17 17:29 Dose: 2.5 mg Dextrose (Dextrose 5% In Water 1000 Ml) 1,000 mls @ 0 mls/hr IV .Q0M PRN; Protocol PRN Reason: Hypoglycemia Protocol Insulin Human Regular (Novolin R) 0 unit SC ACHS [facility]; Protocol Last Admin: 12/30/17 08:23 Dose: Not Given Insulin Human Regular (Novolin R) 3 unit SC ACHS [facility] Last Admin: 12/30/17 08:40 Dose: 3 units Ketorolac Tromethamine (Toradol) 10 mg PO Q6 PRN PRN Reason: Pain, moderate (4-7) Last Admin: 12/30/17 08:39 Dose: 10 mg Loratadine (Claritin) 10 mg PO DAILY [facility] Last Admin: 12/29/17 09:49 Dose: 10 mg Metformin HCl (Glucophage) 500 mg PO BIDCC [facility] Last Admin: 12/30/17 08:47 Dose: 500 mg Montelukast Sodium (Singulair) 10 mg PO HS [facility] Last Admin: 12/29/17 21:50 Dose: 10 mg Oxycodone HCl (Oxycontin Extended Release Tab) 20 mg PO Q12 [facility] Last Admin: 12/29/17 23:39 Dose: Not Given Rosuvastatin Calcium (Crestor) [address] [facility] Last Admin: 12/29/17 21:50 Dose: 5 mg Simethicone (Mylicon Chew Tab) 80 mg PO QID [facility] Last Admin: 12/29/17 21:50 Dose: 80 mg - Labs Labs: 12/29/17 06:31 12/29/17 06:27 PT 10.9 SECONDS (9.7-12.2) 12/23/17 06:47 INR 1.0 12/23/17 06:47 APTT 29 SECONDS (21-34) 12/23/17 06:47
[2017-12-30] MEDS: Simethicone 80 mg Chewtab PO SCH ×2 (09:32→13:01)
[2017-12-30] MEDS: Bacitracin Ointment 30 GM TUBE TOP SCH (09:33)
[2017-12-30] MEDS: Bisacodyl 5mg EC Tab PO SCH (09:33)
[2017-12-30] MEDS: oxyCODONE 20 mg ER Tab (oxyCONTIN) PO SCH (09:33)
[2017-12-30] MEDS: Enoxaparin 40 mg Syringe SC SCH (09:33)
--- NOTE | 2017-12-30 11:21 | CP.PCM.DIS ---
Provider - Provider Date of Admission: 12/22/17 15:22 Attending physician: Pranav Clark MD Primary care physician: Dr. Sánchez Consults: Dr. Lake Time Spent in preparation of Discharge (in minutes): 35 Hospital Course - Lab Results Lab Results: Micro Results 12/25/17 16:15 Blood Blood Culture - Preliminary NO GROWTH AFTER 4 DAYS 12/25/17 14:51 Blood Blood Culture - Preliminary NO GROWTH AFTER 4 DAYS 12/25/17 19:40 Urine,Clean Catch Urine Culture - Final 10-50,000 CFU/ML. MULTIPLE SPECIES. PROBABLE CONTAMINATION. Most Recent Lab Values WBC 10.3 K/uL (4.8-10.8) 12/29/17 06:31 RBC 3.09 Mil/uL (3.80-5.20) L 12/29/17 06:31 Hgb 9.6 g/dL (11.0-16.0) L 12/29/17 06:31 Hct 27.2 % (34.0-47.0) L 12/29/17 06:31 MCV 87.8 fL (81.0-99.0) 12/29/17 06:31 MCH 30.9 pg (27.0-31.0) 12/29/17 06:31 MCHC 35.2 g/dL (33.0-37.0) 12/29/17 06:31 RDW 13.2 % (11.5-14.5) 12/29/17 06:31 Plt Count 308 K/uL (130-400) 12/29/17 06:31 MPV 8.1 fL (7.2-11.7) 12/29/17 06:31 Neut % (Auto) 70.6 % (50.0-75.0) 12/29/17 06:31 Lymph % (Auto) 18.9 % (20.0-40.0) L 12/29/17 06:31 [place] % (Auto) 6.4 % (0.0-10.0) 12/29/17 06:31 Eos % (Auto) 3.6 % (0.0-4.0) 12/29/17 06:31 Baso % (Auto) 0.5 % (0.0-2.0) 12/29/17 06:31 Neut # (Auto) 7.3 K/uL (1.8-7.0) H 12/29/17 06:31 Lymph # (Auto) 2.0 K/uL (1.0-4.3) 12/29/17 06:31 [place] # (Auto) 0.7 K/uL (0.0-0.8) 12/29/17 06:31 Eos # (Auto) 0.4 K/uL (0.0-0.7) 12/29/17 06:31 Baso # (Auto) 0.0 K/uL (0.0-0.2) 12/29/17 06:31 PT 10.9 SECONDS (9.7-12.2) 12/23/17 06:47 INR 1.0 12/23/17 06:47 APTT 29 SECONDS (21-34) 12/23/17 06:47 Sodium 138 mmol/L (132-148) 12/29/17 06:27 Potassium 3.1 mmol/L (3.6-5.2) L 12/29/17 06:27 Chloride 103 mmol/L (98-107) 12/29/17 06:27 Carbon Dioxide 29 mmol/L (22-30) 12/29/17 06:27 Anion Gap 8 (10-20) L 12/29/17 06:27 BUN 8 mg/dL (7-17) 12/29/17 06:27 Creatinine 0.5 mg/dL (0.7-1.2) L 12/29/17 06:27 Est GFR ( Amer) > 60 12/29/17 06:27 Est GFR (Non-Af Amer) > 60 12/29/17 06:27 POC Glucose (mg/dL) 137 mg/dL (65-110) H 12/30/17 05:59 Random Glucose 126 mg/dL (65-105) H 12/29/17 06:27 Hemoglobin A1c 10.2 % (4.2-6.5) H 12/26/17 14:01 Calcium 8.3 mg/dl (8.6-10.4) L 12/29/17 06:27 Phosphorus 3.9 mg/dL (2.5-4.5) 12/29/17 06:27 Magnesium 2.0 mg/dL (1.6-2.3) 12/29/17 06:27 Total Bilirubin 0.6 mg/dL (0.2-1.3) 12/29/17 06:27 AST 31 U/L (14-36) 12/29/17 06:27 ALT 39 U/L (9-52) 12/29/17 06:27 Alkaline Phosphatase 174 U/L (38-126) H 12/29/17 06:27 Total Protein 6.0 g/dL (6.3-8.3) L 12/29/17 06:27 Albumin 3.2 g/dL (3.5-5.0) L 12/29/17 06:27 Globulin 2.9 gm/dL (2.2-3.9) 12/29/17 06:27 Albumin/Globulin Ratio 1.1 (1.0-2.1) 12/29/17 06:27 Urine Color Yellow (YELLOW) 12/25/17 19:37 Urine Clarity Hazy (Clear) 12/25/17 19:37 Urine pH 6.0 (5.0-8.0) 12/25/17 19:37 Ur Specific [place] 1.028 (1.003-1.030) 12/25/17 19:37 Urine Protein Negative mg/dL (NEGATIVE) 12/25/17 19:37 Urine Glucose (UA) 3+ mg/dL (Normal) H 12/25/17 19:37 Urine Ketones 1+ mg/dL (NEGATIVE) H 12/25/17 19:37 Urine Blood 1+ (NEGATIVE) H 12/25/17 19:37 Urine Nitrate Negative (NEGATIVE) 12/25/17 19:37 Urine Bilirubin Negative (NEGATIVE) 12/25/17 19:37 Urine Urobilinogen Normal mg/dL (0.2-1.0) 12/25/17 19:37 Ur Leukocyte Esterase 1+ [place]/uL (Negative) H 12/25/17 19:37 Urine WBC (Auto) 20 /hpf (0-5) H 12/25/17 19:37 Urine RBC (Auto) 17 /hpf (0-3) H 12/25/17 19:37 Ur Squamous Epith Cells 17 /hpf (0-5) H 12/25/17 19:37 Urine Bacteria Rare (<OCC) 12/25/17 19:37 Urine Yeast (Budding) Few /hpf (NEGATIVE) H 12/25/17 19:37 Urine HCG, Qual Negative (NEGATIVE) 12/23/17 06:50 Blood Type B POSITIVE 12/22/17 15:55 Antibody Screen Negative 12/22/17 15:55 - Hospital Course Hospital Course: On admission: Ms. Yeung is a 52 year old female with a PMHx of Diabetes Type II, severe lumbar disk disease, constipation, hyperlipidemia, Asthma, and obstructive sleep apnea who presents with complaints of lower back pain with radiation. Patient was told by her Neurosurgeon (Dr. Lake) to go to the E.R if her back pain ever worsened. Patient walked into the E.R with her assistance of her son. Patient admits to saddle anaesthesia and some urinary incontinence. She denies any bowel incontinence. She also admits to motor loss of the lower extremity and distal lower extremity numbness and tingling. Hospital course: Patient was admitted for lumbar back pain. Patient underwent posterior lumbar fusion, decompression and fixation of L4-5, L5, S1 with Dr. Lake on 12/23/17. Physical therapy was consulted for patient post-operatively. Post-operatively, she spiked fevers. Blood cultures were ordered which were negative. Urine culture revealed multiple species consistent with contamination. CXR was ordered which revealed patchy bibasal infiltrates. She was initially started on antibiotics - Vancomycin and Zosyn but was discontinued the following day as per Dr. Don. She has been afebrile since until discharge. Her pain was well controlled however she experienced some constipation on opioid medication. Narcotic, iron and Ezetia was discontinued and after she was given Simethicone, Dulcolax, Colace, fleet enemas enemas, she had multiple bowel movements and reported feeling much better. She states she had a left big ingrown toenail, for which bacitracin was applied and X ray of left foot was ordered. Patient complained of some mild left lower extremity swelling post-operatively when she was out of bed to chair. Dopplers ordered which were negative for DVT. On discharge, her pain was controlled on Toradol. On discharge, patient has normal bowel sounds with no abdominal tenderness. Her lower extremities were minimally swollen with no calf tenderness. She was able to ambulate with a rolling walker. Initial plan on discharge was to have patient be discharged to subacute rehab for further physical therapy, however insurance denied authorization. Patient stated she preferred to go home and recover at home. Patient was given a script for home physical therapy, rolling walker. Given her history of diabetes, patient was given insulin sliding scale. For her hyperlipidemia, patient was initially started on Crestor and Zetia, however Zetia was discontinued after patient experienced constipation. For her history of asthma, patient was continued on her home medications of Singulair and Claritin. Imaging: Abdominal XR (12/27/17) Possible large bowel ileus or, less likely, distal large bowel obstruction. Venous dopplers (12/26/17) negative for DVT Left foot XR (12/26/17) Status post arthrodesis 1st digit interphalangeal joint with 2 pins identified at the distal 1st metatarsal bone, possibly status post bunionectomy. CXR (12/25/17) Patchy bibasal infiltrates. CXR (12/22/17) Cardiomegaly. No acute pulmonary pathology noted This is a brief summary of the events during hospital course. For further details, please refer to medical records. Discharge summary: Patient is medically stable to be discharged. Follow up with Dr. Lake's off ice in 1 week. Follow up with PMD Dr. Robbie Sánchez as necessary for your other medical issues. You have a script for physical therapy and a rolling walker provided. You have a script provided for pain control. Please continue your other home medications. Please return to the ED if you experience numbness, tingling, weakness of your upper or lower extremities, urinary or bladder incontinence, saddle anesthesia, balance issues or worsening of your current pain. Prescriptions: Toradol 10mg by mouth every 6 hours as needed for pain. Disp # 20 (twenty) Discharge Exam - Head Exam Head Exam: ATRAUMATIC, NORMOCEPHALIC - Eye Exam Eye Exam: EOMI - ENT Exam ENT Exam: Mucous Membranes Moist - Respiratory Exam Respiratory Exam: Clear to PA & Lateral. absent: Rales, Rhonchi, Wheezes, Respiratory Distress, Stridor - Cardiovascular Exam Cardiovascular Exam: REGULAR RHYTHM, +S1, +S2. absent: Gallop, Rubs, Systolic Murmur - GI/Abdominal Exam GI & Abdominal Exam: Normal Bowel Sounds, Soft. absent: Diminished Bowel Sounds, Distended, Firm, Guarding, Hernia, Tenderness - Extremities Exam Extremities exam: normal capillary refill, pedal edema (minimal bilateral pedal edema ), pedal pulses present Additional comments: no calf tenderness. pedal pulses intact. - Back Exam Back exam: absent: CVA tenderness (L), CVA tenderness (R), rash noted Additional comments: Bandage of lumbar region intact. - Neurological Exam Neurological exam: Alert, Oriented x3 - Psychiatric Exam Psychiatric exam: Normal Affect, Normal Mood - Skin Skin Exam: Dry, Intact, Normal Color, Warm Discharge Plan - Discharge Medications Prescriptions: Ketorolac Tromethamine [Toradol] 10 mg PO Q6 PRN #20 tab PRN Reason: Pain, Moderate (4-7) - Follow Up Plan Condition: STABLE Disposition: HOME/ ROUTINE Instructions: Heart Healthy Diet, Low Back Pain (DC), Ketoconazole (Systemic), Spinal Fusion (DC) Additional Instructions: Patient is medically stable to be discharged. Follow up with Dr. Lake's office in 1 week. Follow up with PMD Dr. Robbie Sánchez as necessary for your other medical issues. You have a script for physical therapy and a rolling walker provided. You have a script provided for pain control. Please continue your other home medications. Please return to the ED if you experience numbness, tingling, weakness of your upper or lower extremities, urinary or bladder incontinence, saddle anesthesia, balance issues or worsening of your current pain. Prescriptions: Toradol 10mg by mouth every 6 hours as needed for pain. Disp # 20 (twenty) Referrals: Pradeep Lake MD [Staff Provider] -
[2017-12-30 16:34] VITALS: BP 169/72; PULSE 89; RESP 12; TEMP 98.4; O2SAT 100
--- NOTE | 2017-12-31 13:23 | VASCLAB ---
Date of service: 12/28/2017 PROCEDURE: Lower Extremity Venous Duplex Exam. HISTORY: lower extremity swelling PRIORS: None. TECHNIQUE: Bilateral common femoral, femoral, popliteal and posterior tibial, peroneal and great saphenous veins were evaluated. Flow was assessed with color Doppler, compressibility, assessment of phasic flow and augmentation response. Report prepared by Tomy Green, BS, RVT FINDINGS: RIGHT: 1. Common Femoral Vein: 1.1. Compressibility - Fully compressible: Thrombus - None : Flow - Phasic: Augmentation -Normal: Reflux - None. 2. Femoral Vein: 2.1. Compressibility - Fully compressible: Thrombus - None : Flow - Phasic: Augmentation -Normal: Reflux - None. 3. Popliteal Vein: 3.1. Compressibility - Fully compressible: Thrombus - None : Flow - Phasic: Augmentation -Normal: Reflux - None. 4. Posterior Tibial Vein: 4.1. Compressibility - Fully compressible: Thrombus - None: Flow - Phasic: Augmentation -Normal: Reflux - None. 5. Peroneal Vein: 5.1. Compressibility - Fully compressible: Thrombus - None: Flow - Phasic: Augmentation -Normal: Reflux - None. 6. Great Saphenous Vein: 6.1. Compressibility - Fully compressible: Thrombus - None: Flow - Phasic: Augmentation - Normal: Reflux - None. LEFT: 1. Common Femoral Vein: 1.1. Compressibility - Fully compressible: Thrombus - None: Flow - Phasic: Augmentation -Normal: Reflux - None. 2. Femoral Vein: 2.1. Compressibility - Fully compressible: Thrombus - None: Flow - Phasic: Augmentation -Normal: Reflux - None. 3. Popliteal Vein: 3.1. Compressibility - Fully compressible: Thrombus - None : Flow - Phasic: Augmentation -Normal: Reflux - Moderate. 4. Posterior Tibial Vein: 4.1. Compressibility - Fully compressible: Thrombus - None: Flow - Phasic: Augmentation -Normal: Reflux - None. 5. Peroneal Vein: 5.1. Compressibility - Fully compressible: Thrombus - None: Flow - Phasic: Augmentation -Normal: Reflux - None. 6. Great Saphenous Vein: 6.1. Compressibility - Fully compressible: Thrombus - None: Flow - Phasic: Augmentation - Normal: Reflux - None. OTHER FINDINGS: Right: None significant. Left: None significant. IMPRESSION: Right: No evidence of deep or superficial vein thrombosis of the right lower extremity. Normal valve function noted of the right side. Left: No evidence of deep or superficial vein thrombosis of the left lower extremity. Valvular incompetence in the left popliteal vein
== END 2017-12-30 18:34 | disposition home or self-care (01) | DRG 455 ==
LOC: C.ER 14:17 → C.9E 15:22 → C.3T 16:33 → C.9S 12-23 12:47 → C.6T 12-23 14:25
PROVIDERS: ADMIT Internal Medicine; ATTEND Internal Medicine
PROC: 0SG0071 Fusion of Lumbar Vertebral Joint with Autologous Tissue Substitute, Posterior Approach, Posterior Column, Open Approach (ICD-10-PCS; 2017-12-23)
PROC: 0SB40ZZ Excision of Lumbosacral Disc, Open Approach (ICD-10-PCS; 2017-12-23)
PROC: 07DR3ZZ Extraction of Iliac Bone Marrow, Percutaneous Approach (ICD-10-PCS; 2017-12-23)
PROC: 0SG00AJ Fusion of Lumbar Vertebral Joint with Interbody Fusion Device, Posterior Approach, Anterior Column, Open Approach (ICD-10-PCS; principal; 2017-12-23 07:30)
DX: M51.17 Intervertebral disc disorders with radiculopathy, lumbosacral region (principal); E11.9 Type 2 diabetes mellitus without complications; G47.33 Obstructive sleep apnea (adult) (pediatric); E78.5 Hyperlipidemia, unspecified; E78.00 Pure hypercholesterolemia, unspecified; J45.909 Unspecified asthma, uncomplicated; K59.00 Constipation, unspecified; R29.6 Repeated falls; R50.82 Postprocedural fever; E87.6 Hypokalemia; R60.0 Localized edema; M53.86 Other specified dorsopathies, lumbar region